=== PATIENT | male | born 1940 | race Caucasian/White ===

== ENCOUNTER 2019-09-17 14:26 | Inpatient (IN) ==
[2019-09-17 15:25] LABS: BASO# 0.04 X1000 (0.0-0.2); BASO% 0.3 % (0.0-0.8); EOS# 0.09 X1000 (0.0-0.7); EOS% 0.7 % (0.0-10.0); HEMATOCRIT 48.2 % (42.0-52.0); HEMOGLOBIN 16.1 g/dL (14.0-18.0); IMM GRAN# 0.05 X1000 (0.0-0.04); IMM GRAN% 0.4 % (0.0-0.5); LYMPH# 1.82 X1000 (1.2-3.4); LYMPH% 13.6 % (20.5-51.1); MCH 32.1 PG (27-31); MCHC 33.4 g/dL (33-37); MCV 96.2 FL (81-99); MONO# 0.16 X1000 (0.11-0.59); MONO% 1.2 % (1.7-9.3); MPV 9.3 FL (7.4-10.4); NEUT# 11.22 X1000 (1.4-6.5); NEUT% 83.8 % (42.2-75.2); PLT 198 X1000 (130-400); RBC 5.01 XMIL (4.7-6.1); WBC 13.38 X1000 (4.8-10.8)
[2019-09-17 15:37] LABS: ALB/GLOB RATIO 1.8; ALBUMIN 4.2 g/dL (3.5-5.0); CALCIUM 9.2 mg/dL (8.8-10.2); CREATININE 1.4 mg/dL (0.7-1.2); POTASSIUM 4.1 mmol/L (3.5-5.1); TOTAL BILIRUBIN 2.37 mg/dL (0.20-1.00); TOTAL PROTEIN 6.5 g/dL (6.3-8.3)
[2019-09-17] MEDS ORDERED: NS 500 ML IV ONE ×2 (15:39→18:30)
[2019-09-17] MEDS ORDERED: ZOFRAN ODT PO ONE (15:40)
[2019-09-17] MEDS ORDERED: ZOFRAN IV ONE (15:49)
--- NOTE | 2019-09-17 15:54 | PROVIDER DOCUMENTATION ---
HPI-Abdominal Pain/GI Problem - General Chief Complaint: Abdominal Pain Stated Complaint: ABD PAIN Time Seen by Provider: 09/17/19 14:44 Source: patient Allergies/Adverse Reactions: Patient Allergies Allergy/AdvReac Type Severity Reaction Status Date / Time prednisone AdvReac Mild NERVOUS Verified 01/19/18 21:47 Gtttlyo-Tlb-Mrm Reductase AdvReac ABDOMINAL Verified 01/19/18 21:47 Inhibitor PAIN Home Medications: Home Medication List Medication Instructions Recorded Confirmed Last Taken Type Aspirin [Ecotrin] 81 mg PO DAILY 02/24/12 01/19/18 01/17/18 History 324 mg Lisinopril 20 mg PO DAILY 02/24/12 01/19/18 01/17/18 History Apixaban [Eliquis] 5 mg PO BID tablet 01/23/17 01/19/18 01/09/18 08:00 Rx Nitroglycerin Sl [Nitroglycerin] 0.4 mg SL Q5M PRN PRN #0 tablet 01/23/17 01/19/18 01/17/18 Rx x3 doses. Carvedilol [Coreg] 3.125 mg PO BID 04/01/17 01/19/18 01/17/18 History Furosemide 60 mg PO MOWEFR 04/01/17 01/19/18 01/17/18 History Hydrocodone Bit/Acetaminophen 1 tab PO BID 04/01/17 01/19/18 01/17/18 History [Hydrocodon-Acetaminophen 5-325] Prasugrel HCl [Effient] 10 mg PO DAILY 01/08/18 01/19/18 01/11/18 08:00 History Isosorbide Mononitrate E.r. [Imdur] 30 mg PO DAILY #7 tab 01/18/18 01/19/18 Unknown Rx - History of Present Illness-ABD Nature of Presenting Problems: 79yowm present with c/o abdominal pain, nausea and vomiting that started last pm. Patient states that he ate fig newtons and drank coffee and then vomited last pm. He then took pepto bismol and the symptoms subsided. This am he ate fig newtons and drank coffee and vomited again and took peptol bismol with symptoms subsiding again. He then drove to work and had to stop and vomit on t he way to work. He pulled over at a gas station got some peptol bismol the symptoms did not subside he started having chills and decided to come to the ER at this time. Abdominal Pain Onset Location: reports: epigastric Pain Radiation: reports: no radiation Quality of Pain: reports: cramping Severity in ED: reports: moderate Onset/Duration: reports: last night Timing: reports: still present Activities at Onset: reports: none Exposure to sick contacts?: No Modifying Factors: improves with: nothing Associated Symptoms: reports: fever/chills (chills), nausea, vomiting Last BM: this morning Dark Stools Present?: reports: none noticed Rectal Bleeding: reports: none Rectal Pain: reports: none Emesis Description: reports: none Bruising or Bleeding Gums?: No Similar Symptoms Previously?: No Recently seen or treated by another doctor?: No Review of Systems - Adult - REVIEW OF SYSTEMS - ADULT Constitutional: reports: chills Eyes: reports: no symptoms reported Ears, Nose, Mouth & Throat: reports: no symptoms reported Cardiovascular: reports: no symptoms reported Respiratory: reports: no symptoms reported Gastrointestinal: reports: abdominal pain, constipation, nausea, vomiting Genitourinary: reports: no symptoms reported Musculoskeletal: reports: no symptoms reported Integumentary: reports: no symptoms reported Neurological: reports: no symptoms reported Psychiatric: reports: no symptoms reported Endocrine: reports: no symptoms reported Hematologic/Lymphatic: reports: no symptoms reported Allergic/Immunologic: reports: no symptoms reported All Other Systems: Reviewed and Negative Past History - Adult - PAST MEDICAL HISTORY-ADULT Review of Records: reports: Old Records Reviewed, Nursing Assessment Review, Medications Reviewed, Social history reviewed & non-contributory. 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 on dangers of tobacco.: Discussed manners to quit use, and f/u contacts for add'l counseling. Substance Use: denies Living Situation: family Physical Exam-General - PHYSICAL EXAM-ADULT Initial Vital Signs Reviewed: Yes - CONSTITUTIONAL General Appearance: alert, mild distress - EYES Eyes: PERRL/EOMI, pale conjunctivae - HEAD, EARS, NOSE, MOUTH & THROAT HENMT: normocephalic/atraumatic, moist mucous membranes, normal ENT inspection - NECK Neck: non-tender, full range of motion, supple, normal inspection - RESPIRATORY Respiratory: chest non-tender, lungs clear, normal breath sounds, no pleuratic chest pain, no respiratory distress, no accessory muscle use - CARDIOVASCULAR Cardiovascular: normal peripheral pulses, regular rate, rhythm, no edema, no gallop, no JVD, no murmur - GASTROINTESTINAL (ABDOMEN) Abdominal Exam: normal bowel sounds, tenderness (epigastric) - MUSCULOSKELETAL Back Exam: normal inspection, no CVA tenderness Extremity: non-tender, normal gait, pedal edema Peripheral Pulses: radial (R): 2+, radial (L): 2+, dorsalis-pedis (R): 2+, dorsalis-pedis (L): 2+ - SKIN Integumentary: normal color, normal turgor, warm/dry - NEUROLOGIC Neurologic: grossly normal - PSYCHIATRIC Psych/Mental Status: normal mood/affect, normal thought content, oriented x 3 Progress - PLAN OF CARE/RESULTS Progress/Plan/Lab Results: Vital Signs - 8 hr 09/17/19 14:30 09/17/19 15:12 Temperature 96.4 F L 97 F L Pulse Rate 65 72 Respiratory Rate 27 H 27 H Blood Pressure 182/84 O2 Sat by Pulse Oximetry 96 90 L Laboratory Results - last 24 hr 09/17/19 09/17/19 09/17/19 15:00 15:09 15:09 WBC 13.38 H RBC 5.01 Hgb 16.1 Hct 48.2 MCV 96.2 MCH 32.1 H MCHC 33.4 RDW Std Deviation 14.0 Plt Count 198 MPV 9.3 Immature Gran % (Auto) 0.4 Neut % (Auto) 83.8 H Lymph % (Auto) 13.6 L Moody % (Auto) 1.2 L Eos % (Auto) 0.7 Baso % (Auto) 0.3 Immature Gran # (Auto) 0.05 H Neut # (Auto) 11.22 H Lymph # (Auto) 1.82 Moody # (Auto) 0.16 Eos # (Auto) 0.09 Baso # (Auto) 0.04 Sodium 134 L Potassium 4.1 Chloride 99 Carbon Dioxide 19 L Anion Gap 16 BUN 17 Creatinine 1.4 H Estimated GFR/1.73 m2 49 BUN/Creatinine Ratio 12 Glucose 142 H Calculated Osmolality 272 Calcium 9.2 Total Bilirubin 2.37 H AST 244 H ALT 118 H Alkaline Phosphatase 126 H Total Protein 6.5 Albumin 4.2 Globulin 2.3 Albumin/Globulin Ratio 1.8 Lipase 2138 H Plasma Lactate 3.6 H Orders Category Date Time Status NEWS Score 2-4:Order NEWS Lactate Series NOW Care 09/17/19 14:43 Active NPO Diet 09/17/19 15:01 Active CBC WITH DIFF [HEME] Stat Lab 09/17/19 15:09 Completed COMPREHENSIVE METABOLIC PANEL [CHEM] Stat Lab 09/17/19 15:00 Completed LACTATE, PLASMA [CHEM] Q3H Lab 09/17/19 15:09 Completed LACTATE, PLASMA [CHEM] Q3H Lab 09/17/19 17:45 Uncollected LACTATE, PLASMA [CHEM] Q3H Lab 09/17/19 20:45 Uncollected LIPASE [CHEM] Stat Lab 09/17/19 15:00 Completed 0.9% Sodium Chloride Inj [Ns] 500 ml Med 09/17/19 15:39 Active IV 999 mls/hr Ondansetron Odt [Zofran Odt] Med 09/17/19 15:40 Discontinued 4 mg PO NOW ONE Abd Pain/OB <20 weeks Stat Oth 09/17/19 15:01 Ordered Patient agrees with POC rendered today. Result Diagrams: 09/17/19 15:09 09/17/19 15:00 - XRAY 1 XRAY Study: Abdomen Impression: See EMR Report (COMMENT: The bowel gas pattern is unremarkable. There is no evidence organomegaly or mass. Compared to 08/11/2011 there has been no significant change in the appearance of the abdomen. IMPRESSION: Nonspecific abdomen. Electronically signed by Eric Smith 09/17/2019 4:24 PM) 2 XRAY Study: Chest (COMMENT: There is a left pleural effusion. There is hazy interstitial opacity in both lung bases particularly the left lower lobe. This is slightly worse than on 01/19/2018. The heart size remains enlarged. IMPRESSION: Pulmonary edema. Left pleural effusion. Electronically signed by Eric Smith 09/17/2019 4:23 PM) - CONSULTS/PCP/HOSPITALIST Notification #1 *Consult/PCP/Hospitalist*: KATINA Gomez for Dr. King Time Discussed: 17:53 Consult Disposition: Admit Departure - Departure Date of Disposition Decision: 09/17/19 Time of Disposition Decision: 17:53 DIAGNOSIS: Pancreatitis, acute Qualifiers: Pancreatitis type: unspecified pancreatitis type Acute pancreatitis complication: unspecified Qualified Code(s): K85.90 - Acute pancreatitis without necrosis or infection, unspecified Disposition: ADMITTED INPATIENT 09 Certified Medical Emergency: Emergent Condition: Serious Referrals and Follow-Ups: None,PCP [Primary Care Provider] - - Critical Care Note This patient required my direct & personal management of CC.: Yes Total Time (mins): 40 Critical Care Statement: This patient required my direct personal management to treat or rule out processes, the absence of which, could potentiallly result in sudden, clinically significant life or limb threatening deterioration. Attestation - Physician/ ANGIE Attestation Patient care was provided by Advanced Practice Provider:: Yes Advanced Practice Provider:: Lucretia Woodruff Advanced Practice Provider documentation review:: The Mid-level provider documentation, treatment plan and medical decision making was reviewed by the physician who agrees with all treatment and medical decision making by the MLP. The physician spent face to face time with patient:: No Advanced Practice Provider documentation review:: Supervising physician onsite and consulted in the evaluation and care of this patient. The physician did not have a face to face encounter with the patient.
[2019-09-17] MEDS ORDERED: NS 1,000 ML IV ONE (16:05)
[2019-09-17 16:19] LABS: INR 1.13; PROTIME 14.7 Seconds (11.0-16.0)
[2019-09-17 16:21] LABS: PTT 27.9 Seconds (22.3-41.8)
[2019-09-17 16:26] LABS: URINE SOURCE CLEAN CATCH
--- NOTE | 2019-09-17 16:26 | Diag Imaging Result Doc PS360 ---
EXAM: CHEST-1 VIEW 09/17/2019 HISTORY: sepsis protocol TECHNIQUE: AP portable supine at 1604 COMMENT: There is a left pleural effusion. There is hazy interstitial opacity in both lung bases particularly the left lower lobe. This is slightly worse than on 01/19/2018. The heart size remains enlarged. IMPRESSION: Pulmonary edema. Left pleural effusion. Electronically signed by Eric Smith 09/17/2019 4:23 PM
--- NOTE | 2019-09-17 16:26 | Diag Imaging Result Doc PS360 ---
EXAM: KUB ABDOMEN 09/17/2019 HISTORY: n/v TECHNIQUE: KUB COMMENT: The bowel gas pattern is unremarkable. There is no evidence organomegaly or mass. Compared to 08/11/2011 there has been no significant change in the appearance of the abdomen. IMPRESSION: Nonspecific abdomen. Electronically signed by Eric Smith 09/17/2019 4:24 PM
[2019-09-17 16:29] LABS: BILIRUBIN URINE NEGATIVE (NEGATIVE); BLOOD URINE NEGATIVE (NEGATIVE); COLOR YELLOW; GLUCOSE URINE NEGATIVE (NEGATIVE); KETONE URINE NEGATIVE (NEGATIVE); LEUKOCYTES URINE NEGATIVE (NEGATIVE); NITRITE URINE NEGATIVE (NEGATIVE); PROTEIN URINE TRACE mg/dL (NEGATIVE); TURBIDITY URINE CLEAR (CLEAR); UROBILINOGEN URINE 2 mg/dL (NORMAL)
[2019-09-17 16:39] LABS: UR EPITHELIAL CELLS <10 /HPF (<10); URINE BACTERIA NEGATIVE /HPF; URINE RBC <10 /HPF (<10); URINE WBC <10 /HPF (<10)
[2019-09-17 16:42] LABS: URINE CASTS NONE SEEN; URINE CRYSTALS NONE SEEN; URINE YEAST NONE SEEN
[2019-09-17] MEDS ORDERED: SODIUM CHLORIDE 0.9% INJ SCH (18:20)
[2019-09-17] MEDS ORDERED: ZOFRAN IV PRN (18:20)
[2019-09-17] MEDS ORDERED: NS 1,000 ML IV SCH (18:20)
--- NOTE | 2019-09-17 18:59 | HISTORY AND PHYSICAL ---
PRIMARY CARE PHYSICIAN: Listed as none. CHIEF COMPLAINT: Abdominal pain with nausea, vomiting that began last night and progressively worsened. HISTORY OF PRESENTING ILLNESS: This is an 79-year-old male who presents to [facility] with a periumbilical abdominal pain and nausea, vomiting that began last night. States that he had eaten some Fig Newtons and drank coffee and then threw up and took some Pepto-Bismol and the symptoms subsided. This morning, he did the same thing in eating Fig Newtons and drinking coffee and then threw up again. He took some Pepto-Bismol and the symptoms subsided again. He was driving to work this morning and had to stop again and throw up and went and got some Pepto-Bismol, but the symptoms did not subside this time. Began having chills so he came to the emergency room. His workup showed a white blood cell count of 13.38. Sodium of 134, creatinine of 1.4 which appears to be around his baseline. He had elevated LFTs with an AST of 244, ALT 118, total bilirubin 2.37. Triglycerides were 103, lipase was 2138 with a plasma lactate of 3.6. We did a chest x-ray that showed pulmonary edema and a left pleural effusion. An abdomen x-ray showed a nonspecific abdomen, so he will be admitted for further evaluation and treatment. PAST MEDICAL HISTORY: CHF, atrial fibrillation, hypertension, coronary artery disease, asthma, shingle neuropathy. PAST SURGICAL HISTORY: CABG, heart stents, and a lung resection. FAMILY HISTORY: Reviewed and noncontributory. SOCIAL HISTORY: Currently lives with family. Smokes a pipe 3 times a day. Denies any alcohol or illicit drug use. ALLERGIES TO: Prednisone and statins. HOME MEDICATIONS: A current list will need to be obtained, reconciled, reviewed and restarted as appropriate. We will place an order for nursing to update and confirm home medications. LABORATORY DATA: Showed a white blood cell count of 13.38, hemoglobin of 16.1, hematocrit 48.2, platelets 198,000. PT and INR of 14.7 and 1.13. Sodium 134, potassium 4.1, chloride 99, CO2 19, BUN of 17 with a creatinine of 1.4, glucose 142, total bilirubin of 2.37, AST of 244, ALT of 118. Cardiac enzymes were negative. Triglycerides were 103, cholesterol 214. His lipase was 2138 with a plasma lactate of 3.6. Urinalysis was negative. Chest x-ray showed pulmonary edema and a left pleural effusion. Abdomen x-ray showed a nonspecific abdomen. REVIEW OF SYSTEMS: He denied any fever. He was positive for chills. Denied any blurred vision, dizziness, chest pain, coughing, shortness of breath. He had periumbilical abdominal pain, nausea, vomiting. Denied constipation, diarrhea, burning or hurting with urination. PHYSICAL EXAMINATION: On arrival he had a temperature of 96.4 degrees, pulse of 65, respirations 27, blood pressure of 182/84 saturating 96% on room air. He dropped this sat about an hour after arrival to 90% on room air so we placed him on some O2 and is now saturating 92% on 4 L via nasal cannula. GENERAL: This is an 79-year-old male who is lying in the bed and answers questions appropriately. HEENT: Normocephalic, atraumatic. Normal ENT inspection. Oropharynx and nares are clear. EYES: Pupils are equal, round, and reactive to light and accommodation. Extraocular movements are intact. NECK: Normal inspection. Normal range of motion. LUNGS: Clear to auscultation bilaterally with equal lung expansion and chest wall movement. HEART: With regular rate and rhythm. No murmurs, rubs, or gallops. ABDOMEN: There is some tenderness in the periumbilical and epigastric area. Bowel sounds are present x4 quadrants. MUSCULOSKELETAL: He had 5/5 strength x4 extremities. NEUROLOGICAL: Cranial nerves 2-12 are grossly intact. ASSESSMENT: 1. An acute pancreatitis. 2. Elevated liver function tests. 3. History of congestive heart failure. 4. Hypertension. PLAN: He will be admitted to the medical unit, held n.p.o. We are going to check a complete abdomen ultrasound. He did receive 2 L of normal saline in the emergency room due to his congestive heart failure. I am going to go gently with some fluids just at 50 mL an hour, have morphine 2 mg IV q.3 hours p.r.n. for pain. We will give him Zofran 4 mg IV q.4 hours p.r.n. We will update and confirm his home medications, but at this time he is NPO anyway so he would not receive any of his medications. This certainly could be a gallstone pancreatitis since he has got some elevation in his LFTs. We will review those results when the ultrasound is available and we will recheck a CBC, CMP in the a.m. and further orders after seen by attending. Dictated by KATINA Gomez for Chris King MD cc: KATINA Gomez MD
--- NOTE | 2019-09-17 19:19 | HISTORY AND PHYSICAL ---
ADDENDUM: I have seen and examined Mr. Benavides today. Mr. Benavides presented with acute onset of abdominal pain, mid epigastrium that radiated to the back associated with some nauseation. That happened yesterday. It eased off, and then this morning it came even harder. That prompted him to come to the emergency room. Upon presentation, he was evaluated, was found to have mild elevation of the liver enzymes and also remarkably elevated in the lipase consistent with acute pancreatitis. Etiology is still unknown. PHYSICAL EXAM: HEENT: Mucous membrane is remarkably dry. He is actually requesting if he can drink something. CHEST: Clear. CARDIOVASCULAR: Regular rate and rhythm. There is an old sternotomy scar on the anterior chest wall. ABDOMEN: Soft. There is some tenderness in the periumbilical area. There is no rebound tenderness. Bowel sounds are present. EXTREMITIES: No pedal edema. LABORATORY DATA: Has also been reviewed. There is mild leukocytosis and evidence of hemoconcentration with hemoglobin of 16.1. Chemistry is also reviewed. Creatinine is 1.4. Bilirubin is 2.39, AST is 244, ALT is 118. Lipase is remarkably elevated. ASSESSMENT: 1. Acute onset of abdominal pain secondary to acute pancreatitis. Etiology is still unknown. The patient's liver enzymes are elevated, which is concerning for possible gallstone induced acute pancreatitis. On physical exams, he does not seem to have any tenderness in the gallbladder region. We will get a CT scan of the abdomen to rule out any possible etiology. So far, triglycerides are within normal range. Patient denies alcohol use despite AST is more elevated than the ALT. 2. Clinical volume depletion. The patient will be started on lactated Ringer's for fluid resuscitation purposes. That would also be the fluid for the pancreatitis therapy. 3. Acute kidney injury secondary to volume depletion. We will continue to follow. We will also avoid any nephrotoxin. 4. History of coronary artery disease status post coronary artery bypass graft noted. 5. Severe ischemic cardiomyopathy with systolic dysfunction, ejection fraction of 35% to 40% on a left heart cath done in 2018 noted. The patient will keep a very close eye on his hydration status. Please refer to the details of the history and physical that has been dictated by the ANIMAL CARETAKER SUPERVISOR in the chart. I have reviewed I have discussed the plan with her. I have also discussed my findings and the plan with Mr. Benavides. cc: Chris King MD
[2019-09-17] MEDS: LR 1,000 ML IV SCH (19:23)
[2019-09-17] MEDS: PROTONIX IV SCH (19:23)
--- NOTE | 2019-09-17 21:19 | Diag Imaging Result Doc PS360 ---
EXAM: CT ABD/PELVIS W/IV CONT ONLY 09/17/2019 HISTORY: acute pancreatitis TECHNIQUE: This exam was performed using automated exposure control, adjustment of mA or kV according to patient size, and/or use of iterative reconstruction technique. COMMENT: There are no previous studies available for comparison. There are bilateral pleural effusions more so on the left than the right. There is compressive atelectasis particularly in the left lower lobe. There are some partially calcified fibrotic scars in the right lower lobe. There are dense calcifications in the superior mesenteric artery and there is infrarenal abdominal aortic aneurysm with a maximum AP diameter of 3.6 cm. There is a calcification in both common iliac arteries with some aneurysmal dilatation of the right two 1.7 cm in diameter. There is some stranding in the fat surrounding the second portion of the duodenum. There is an apparent diverticulum arising from the third portion of the duodenum which contains some solid material. There is apparent wall thickening and possible para cholecystic fluid or gallbladder with some small calcified stones in the fundus. The gallbladder is not particularly distended. There is no evidence of biliary dilatation. The spleen and adrenal glands are not enlarged. There are numerous vascular calcifications in both kidneys. There is no evidence of hydronephrosis. The pancreas is relatively normal in appearance. There is no evidence of bowel obstruction. Pelvis: The appendix is not distended or inflamed in appearance. There is no evidence of free fluid. The urinary bladder is not distended. There are surgical clips in the prostate. There are spondylotic changes in the lumbar spine. IMPRESSION: The possibility of cholecystitis cannot be excluded. Apparent duodenitis involving the second portion of the duodenum. Electronically signed by Eric Smith 09/17/2019 9:17 PM
[2019-09-17] MEDS: MORPHINE IV PRN (22:48)
[2019-09-17] MEDS: ZOSYN 3.375 GM in NS 50 ML IV SCH (22:59)
[2019-09-18] MEDS: MORPHINE IV PRN ×3 (03:21→23:00)
[2019-09-18] MEDS: LR 1,000 ML IV SCH ×3 (03:24→19:47)
[2019-09-18] MEDS: ZOSYN 3.375 GM in NS 50 ML IV SCH ×4 (03:24→21:35)
[2019-09-18 07:13] LABS: ALB/GLOB RATIO 1.7; ALBUMIN 3.5 g/dL (3.5-5.0); CALCIUM 8.5 mg/dL (8.8-10.2); CREATININE 1.7 mg/dL (0.7-1.2); POTASSIUM 4.5 mmol/L (3.5-5.1); TOTAL BILIRUBIN 6.81 mg/dL (0.20-1.00); TOTAL PROTEIN 5.6 g/dL (6.3-8.3)
[2019-09-18 07:16] LABS: BASO# 0.01 X1000 (0.0-0.2); HEMATOCRIT 42.5 % (42.0-52.0); HEMOGLOBIN 13.9 g/dL (14.0-18.0); IMM GRAN# 0.05 X1000 (0.0-0.04); IMM GRAN% 0.2 % (0.0-0.5); LYMPH# 0.63 X1000 (1.2-3.4); LYMPH% 2.8 % (20.5-51.1); MCH 31.8 PG (27-31); MCHC 32.7 g/dL (33-37); MCV 97.3 FL (81-99); MONO# 1.34 X1000 (0.11-0.59); MONO% 5.9 % (1.7-9.3); MPV 9.7 FL (7.4-10.4); NEUT# 20.57 X1000 (1.4-6.5); NEUT% 91.1 % (42.2-75.2); PLT 149 X1000 (130-400); RBC 4.37 XMIL (4.7-6.1); RDW 14.4 % (11.5-14.5)
[2019-09-18 08:05] LABS: BANDS 14 % (0-1); LYMPHS 10 % (21-51); MONO 8 % (1-9); SEGS 68 % (42-75)
--- NOTE | 2019-09-18 09:29 | Diag Imaging Result Doc PS360 ---
EXAM: US ABDOMEN-COMPLETE 09/18/2019 HISTORY: pancreatitis TECHNIQUE: Abdominal ultrasound COMMENT: The pancreatic head and body are normal in appearance the remainder is not well seen. The liver is slightly heterogeneous in echotexture without definite masses. The visualized portions of the inferior vena cava are within normal limits. There is slight fusiform dilatation of the infrarenal abdominal aorta to almost 3 cm in AP dimension. This was measured at 3.6 cm on the recent CT of 09/17/2019. There is some sludge and small stones in the gallbladder. There is a 7 mm stone in the neck of the gallbladder. There is no sonographic Smith sign. There is antegrade flow in the portal vein. The common bile duct is not distended measuring less than 4 mm. The spleen is not enlarged. The kidneys are without evidence of hydronephrosis or mass. IMPRESSION: Cholelithiasis with sludge in the gallbladder. Abdominal aortic aneurysm. Electronically signed by Eric Smith 09/18/2019 9:27 AM
--- NOTE | 2019-09-18 12:03 | PROGRESS NOTE ---
DATE: 09/18/2019 SUBJECTIVE: This patient seems to be feeling good. As per the patient, his pain went away yesterday night. He is not having pain upon palpation. His abdomen seems to be benign, but his LFTs and white blood cell count went up. We asked for an abdominal ultrasound that showed cholelithiasis with sludge in the gallbladder. and also showed an abdominal aortic aneurysm that was recently measured at 3.[address] cm [address] scan on 09/17/2019. OBJECTIVE: Vital Signs: Temperature 98.2 degrees, pulse 60, respiratory rate 17, blood pressure 112/42, oxygen saturation 95% on nasal cannula. HEENT: Head normocephalic, no trauma. PERRLA. Neck: Supple. No JVD. No masses. Central trachea. Chest: Clear to auscultation. No wheezing. No rales. Abdomen: Soft, nontender, nondistended. No hepatosplenomegaly. Extremities: No edema, no clubbing, no cyanosis. Neurological: The patient is awake, alert, he is oriented. LABORATORY: WBC 22.6, hemoglobin 13.9, hematocrit 42.5, platelets 149,000, sodium 138, potassium 4.5, chloride 101, bicarbonate 20, BUN 22, creatinine 1.7, glucose 111, calcium 8.5, total bilirubin 6.8, AST 386, ALT 330, alkaline phosphatase 154, albumin 3.5. ASSESSMENT AND PLAN: 1. Acute onset of abdominal pain secondary to acute pancreatitis. Lipase level was 2,138. Triglyceride level was normal. He is not a drinker, his LFTs are trending up so probably this is related to a biliary pancreatitis, probably he had a little stone and the stone passed and now he is basically asymptomatic. Last time he received morphine was at 3:20 a.m. today and when I examined him around 10 a.m. or so he was not complaining of abdominal pain. Given his history of heart failure, I will be gentle with the IV fluids. 2. Dehydration, seems to be euvolemic at this moment. 3. Acute kidney injury, probably due to dehydration as well. His creatinine is trending up even though he has been getting fluids. Also he had a CT of abdomen with IV contrast that can cause kidney problems. I will continue with gentle IV fluids and I will monitor this closely. 4. History of coronary artery disease, status post coronary artery bypass graft, with severe ischemic cardiomyopathy with systolic dysfunction. His ejection fraction is 35 to 40 percent on a left heart catheterization done on 2018. Like I mentioned before, we will keep an eye on his IV fluids. He has no complaints of chest pain or shortness of breath at this moment. Surgery Department has been consulted as well as Gastroenterology. Ultrasound showed cholelithiasis with sludge in the gallbladder and abdominal aortic aneurysm. cc: Renny Sauceda MD
--- NOTE | 2019-09-18 13:15 | CONSULTATION ---
DATE OF CONSULTATION: 09/18/2019 Mr. Mike Benavides is an 79-year-old white male who was admitted through the emergency department yesterday afternoon to our hospitalists with abdominal pain, nausea and vomiting. He underwent a CT scan of his abdomen and pelvis as part of his evaluation, which showed some inflammation around his duodenum, also showed gallstones. His lipase was markedly elevated. He is admitted with gallstone pancreatitis and we were asked to evaluate him. This morning he says that his pain is improved. PAST MEDICAL HISTORY: Atrial fibrillation, coronary artery disease, hypertension, asthma, kidney stones, shingles, cardiac stent, lung resection, coronary artery bypass grafting. MEDICATIONS: 1. Aspirin. 2. Lisinopril. 3. Eliquis. 4. Nitroglycerin. 5. Coreg. 6. Lasix. 7. Imdur. 8. Effient. ALLERGIES: He is allergic to statins. REVIEW OF SYSTEMS: A review of systems was performed and was essentially negative except for the history of present illness. History of smoker. FAMILY HISTORY: Was reviewed with the patient and was noncontributory. PHYSICAL EXAMINATION: General: On exam, Mr. Benavides is a frail older white male who is awake and cooperative, seems to be comfortable. He is slim. He has no jaundice. No oral lesions. No cervical or supraclavicular lymphadenopathy. Heart: Has an irregular rate. Lungs: Clear. Abdomen: Soft, nontender, without palpable mass. No costovertebral tenderness. Rectal exam: Was not performed. Extremities: He does have palpable femoral pulses. He has no significant peripheral edema. Neurological: No focal deficit. His white blood cell count was elevated to 13. His BUN and creatinine are 17 and 1.4. His lipase was in the thousands. IMPRESSION: Gallstone pancreatitis. PLAN: He is NPO now. Clinically it seems like he has improved since his admission. We will follow his amylase and lipase and as those improve, we will plan to do a laparoscopic cholecystectomy. We will have to work out his anticoagulation. cc: Aurora Gramajo MD
[2019-09-18] MEDS: PROTONIX IV SCH (18:08)
--- NOTE | 2019-09-18 22:42 | GASTROENTEROLOGY CONSULTATION ---
DATE: 09/18/2019 Requesting Physician: Dr. Andres. REASON FOR CONSULTATION: Gallstone pancreatitis. HISTORY OF PRESENT ILLNESS: Mr. Benavides is an 79-year-old male who was admitted on 09/17/2019 for symptoms of periumbilical abdominal pain, nausea, and vomiting starting last night. According to the patient, he took Pepto-Bismol initially which helped the symptoms, but next morning he had started to hurt again along with nausea and vomiting. Because of persistent symptoms, he came to the ER. In the ER he was noted to have elevated white count, elevated liver enzymes and was admitted. He had imaging in the form of CT scan of abdomen and pelvis which showed evidence of wall thickening and possible pericholecystic fluid with some calcified stones in the fundus of the gallbladder suggesting possibility of acute cholecystitis. There was evidence of apparent duodenitis involving the second portion of the duodenum. He also had an ultrasound of the abdomen done which showed evidence of cholelithiasis with sludge in the gallbladder and apparent aortic aneurysm, the aortic aneurysm measuring 3 cm and was infrarenal in position. The CBD measured 4 mm, and there was antegrade flow in the portal vein. The patient has already been seen by Dr. Gramajo who is planning possible cholecystectomy based on his clinical course. During this hospital stay the patient was also noted to have elevated liver enzymes and elevated lipase of 2138, and Gastroenterology was consulted for further management. PAST MEDICAL HISTORY: Congestive heart failure, atrial fibrillation, hypertension, coronary artery disease, asthma, shingles, and neuropathy. PAST SURGICAL HISTORY: CABG, heart stents, and lung resection. FAMILY HISTORY: Noncontributory. SOCIAL HISTORY: Currently lives with family. He smokes a pipe 3 times a day. Denies history of alcohol or illicit drug abuse. ALLERGIES: Prednisone and statins. MEDICATIONS IN THE HOSPITAL: Included morphine, Lovenox, lactated Ringer's at 75 mL per hour, Zofran 4 mg IV q. 4 hours, Protonix once daily, and Zosyn 3.375 g IV q. 6 hours. According to the records, he has gotten fluid boluses on admission. He is currently NPO. REVIEW OF SYSTEMS: Denies any current fevers, rigors, or chills. Denies any vomiting blood or passing blood in the stools. He denies any neurologic complaints. He denies any chest pain or shortness of breath. He denies any other kidney problems. PHYSICAL EXAMINATION: Vital signs: Temperature 98 degrees, pulse rate of 60, respiratory rate of 17, blood pressure 120/48, saturating 90% on nasal cannula. Body weight of 150 pounds. BMI 22.8 kg/m2. General: Moderately built, moderately nourished, sitting in bed, in no acute distress. HEENT: Positive pallor. Positive icterus. Pupils equal and reactive to the light and accommodation. Neck: Neck is supple. Abdomen: Soft, nontender. Mild discomfort in the epigastrium on deep palpation. No rebound or guarding. Extremities: No cyanosis, clubbing. Neurologic: He is alert, awake, oriented x3. LABORATORIES: Hemoglobin and hematocrit is 42.5, white count of 22.6, platelet count of 149,000. Sodium 138, potassium 4.5, chloride 101, bicarb 20, anion gap of 17, BUN of 22, creatinine 1.7, glucose of 111, calcium is 8.5, total bilirubin is 6.8, AST 386, ALT 330, alkaline phos is 150, total protein 5.6, albumin of 3.5, CRP 65.27. Lipase on admission was 2138. Urinalysis showing trace protein. Blood cultures were drawn and it is showing gram-negative rods in 1 out of 2 sets. IMAGING: As per the HPI. IMPRESSION AND PLAN: 1. Gallstone pancreatitis. 2. Gallstones. 3. Normal common bile duct. 4. Elevated liver enzymes secondary to above. 5. Leukocytosis. 6. Gram-negative bacteremia. 7. Acute kidney injury. 8. Dehydration. 9. History of coronary artery disease. 10. Status post coronary artery bypass graft with severe ischemic cardiomyopathy and systolic dysfunction. According to the records, his last ejection fraction was 35 percent to 40 percent on left heart catheterization in 2018. RECOMMENDATIONS: We will start the patient on IV fluids. So far he has received some boluses and currently receiving fluids at 75 mL per hour. He is currently pain free. He is hungry. He wants to start a diet. We will start him on clear liquid diet if okay with the surgery team. He will continue on morphine for pain control. He will be on Lovenox for DVT prophylaxis. He is on Zofran IV as needed. We will give him Protonix once daily. He is on Zosyn every 6 hours for gram-negative bacteremia. This may have to be adjusted based on the final blood culture report and speciation. Surgery is on board. We will plan to do a cholecystectomy based on the clinical course. The patient had been on blood thinners at home in the form of Effient and Eliquis because of history of coronary artery disease. These have been withheld for now. The above plans were discussed with the patient and the nursing staff and all questions answered. Please call us with any further questions or concerns. We will follow along. cc: MD Renny Mckay MD Dr. Buckner MTDD
[2019-09-19] MEDS: ZOSYN 3.375 GM in NS 50 ML IV SCH ×4 (02:32→20:59)
[2019-09-19] MEDS: LOVENOX SUBQ SCH (05:50)
[2019-09-19 07:31] LABS: BASO# 0.01 X1000 (0.0-0.2); BASO% 0.1 % (0.0-0.8); HEMATOCRIT 37.4 % (42.0-52.0); HEMOGLOBIN 12.3 g/dL (14.0-18.0); IMM GRAN# 0.04 X1000 (0.0-0.04); IMM GRAN% 0.3 % (0.0-0.5); LYMPH# 0.36 X1000 (1.2-3.4); LYMPH% 2.8 % (20.5-51.1); MCH 31.5 PG (27-31); MCHC 32.9 g/dL (33-37); MCV 95.9 FL (81-99); MONO# 0.66 X1000 (0.11-0.59); MONO% 5.1 % (1.7-9.3); MPV 10.3 FL (7.4-10.4); NEUT# 11.78 X1000 (1.4-6.5); NEUT% 91.7 % (42.2-75.2); PLT 100 X1000 (130-400); RDW 14.3 % (11.5-14.5); WBC 12.85 X1000 (4.8-10.8)
[2019-09-19 07:42] LABS: AMYLASE 132 U/L (20-200); LIPASE 37 U/L (13-60)
[2019-09-19 07:43] LABS: ALB/GLOB RATIO 1.5; ALBUMIN 2.9 g/dL (3.5-5.0); CREATININE 1.7 mg/dL (0.7-1.2); POTASSIUM 3.8 mmol/L (3.5-5.1); TOTAL BILIRUBIN 5.3 mg/dL (0.20-1.00); TOTAL PROTEIN 4.9 g/dL (6.3-8.3)
[2019-09-19 07:50] LABS: BANDS 10 % (0-1); LYMPHS 14 % (21-51); MONO 2 % (1-9); SEGS 74 % (42-75)
[2019-09-19] MEDS ORDERED: MARCAINE 0.25% PF/EPI 1:200,000 ONE (10:24)
[2019-09-19] MEDS ORDERED: LR 1,000 ML ONE (10:25)
[2019-09-19] MEDS ORDERED: SODIUM CHLORIDE 0.9% ONE (10:25)
[2019-09-19] MEDS ORDERED: AMIDATE ONE (10:47)
[2019-09-19] MEDS ORDERED: FENTANYL ONE (10:53)
[2019-09-19] MEDS ORDERED: DECADRON ONE (11:00)
[2019-09-19] MEDS ORDERED: ZOFRAN ONE (11:00)
[2019-09-19] MEDS ORDERED: ZEMURON ONE (11:02)
[2019-09-19] MEDS ORDERED: XYLOCAINE-MPF 2% ONE (11:24)
[2019-09-19] MEDS ORDERED: ROBINUL ONE ×2 (11:24→11:28)
[2019-09-19] MEDS ORDERED: NEOSTIGMINE ONE (11:28)
[2019-09-19] MEDS ORDERED: VENTOLIN HFA ONE (11:49)
--- NOTE | 2019-09-19 11:49 | Diag Imaging Result Doc PS360 ---
EXAM: OPERATIVE CHOLANGIOGRAM 09/19/2019 HISTORY: CHOLECYSTECTOMY TECHNIQUE: Intraoperative cholangiogram three images COMMENT: There is some contrast in the duodenum. There are no definite filling defects present in the common hepatic duct or intrahepatic bile ducts, which are otherwise very well demonstrated. The possibility of some small amounts of debris or stone fragments in the distal common bile duct cannot be excluded. There is retrograde filling of the pancreatic duct which appears patent. The possibility of spasm of the sphincter of Oddi cannot be excluded. IMPRESSION: Questionable debris in the distal common bile duct and/or sphincter of Oddi spasm. Electronically signed by Eric Smith 09/19/2019 11:47 AM
[2019-09-19] MEDS ORDERED: DEMEROL ONE (11:56)
--- NOTE | 2019-09-19 12:08 | OPERATIVE NOTE ---
PROCEDURE DATE: 09/19/2019 PREOPERATIVE DIAGNOSIS: Gallstone pancreatitis. POSTOPERATIVE DIAGNOSIS: Chronic cholecystitis with cholelithiasis. PRINCIPAL PROCEDURE: Laparoscopic cholecystectomy with intraoperative cholangiogram. SURGEON: Aurora Gramajo MD. BURRER OPERATOR: Dr. Juan A Crystal. ANESTHESIA: General in addition to local anesthetic. ESTIMATED BLOOD LOSS: 30 mL. DRAINS: None. INDICATIONS: Mr. Mike Benavides is an 79-year-old white male who was admitted through our emergency department with gallstone pancreatitis. This morning, his lipase and amylase were normal. His liver function tests were still elevated and he had study showing that he had gallstones and cholecystectomy was recommended. FINDINGS: His gallbladder was chronically inflamed and had fat around it. We did do an intraoperative cholangiogram, which showed free flow of the dye into the duodenum without evidence of extrahepatic stones or obstruction. We also opacified the pancreatic duct which also looked normal. The liver appeared to be healthy. We felt we did the operation safely. No other intra- abdominal pathology was noted. DESCRIPTION OF PROCEDURE: Dr. Juan A Crystal was present throughout this operation. His presence was necessary so that I had the help I needed on and during this coronavirus time. He helped with retraction of the right lobe of the liver and the gallbladder so that I could easily dissect out the triangle of Calot. He also helped with exposure so that I could remove the gallbladder from the liver bed. He helped with retractions so I could remove the gallbladder through our umbilical incision. He also helped close trocar incisions. The patient was brought to the operating room, placed supine, received general anesthesia, was intubated. His abdomen was prepped and draped within a sterile field. We made a curvilinear incision below the umbilicus using a 15 blade scalpel. Veress needle was introduced through this incision into the abdomen. Pneumoperitoneum was established. The Veress needle was removed, and I placed an 11 mm trocar through this incision into the abdomen. The camera was placed through this port, and the abdomen was explored for injury, there was none. Three other trocars were placed along the right costal margin under direct vision of the camera. I placed an 11 mm trocar just to the right of the midline and two 5 mm trocars in our midclavicular and anterior axillary lines. Through our most lateral port, the gallbladder was grasped and retracted superiorly along with the right lobe of the liver. Another grasper was used to grab the body of the gallbladder and the triangle of Calot was bluntly dissected. We identified the cystic duct along its length. We also identified the cystic artery. A clip was placed distally on the cystic artery, 2 proximally, it was divided using hook scissors. I placed a clip at the cystic duct gallbladder junction. I made a small incision in the cystic duct using hook scissors and a taut intraoperative cholangiogram catheter was used to perform the cholangiogram with findings above. Once cholangiogram was completed, 2 clips were placed proximally on the cystic duct, and I divided the cystic duct between clips using hook scissors. The gallbladder was removed from the liver bed using spatula cautery. I did have to use an endobag to remove the gallbladder through our umbilical incision. I placed the trocar back through this incision and the area of operation was thoroughly inspected, irrigated, and the irrigation was removed with suction. I did have to use some cautery on the liver bed to control some oozing. We decided against leaving any drain. All trocars were removed under direct vision of the camera. The pneumoperitoneum was allowed to dissipate. I used a [id number] 2-0 Vicryl stitch to reapproximate the fascia and both of our 11 mm trocar sites and all skin was closed with 4-0 Monocryl subcuticular stitches. Dressings were applied. He tolerated the procedure well with plans for him to go the recovery room and then return to his room on the floor. cc: Aurora Gramajo MD
[2019-09-19] MEDS ORDERED: LR 1,000 ML IV SCH (13:00)
--- NOTE | 2019-09-19 14:27 | PROGRESS NOTE ---
DATE: 09/19/2019 SUBJECTIVE: The patient seems to be feeling better today. He is not complaining of abdominal pain. I evaluated this patient in the morning and he was about to get a cholecystectomy done that actually has been done already, laparoscopic cholecystectomy with cholangiogram which did not show any obstruction. OBJECTIVE: Vital Signs: Temperature 97.4 degrees, pulse 66, respiratory rate 12, blood pressure 129/48, oxygen saturation 91 on 4 L nasal cannula. HEENT: Head normocephalic. No trauma. PERRLA. Icteric sclerae. Neck: Supple. No JVD. No masses. Central trachea. Chest: Clear to auscultation. No wheezing, no rales. Abdomen: Soft. He was nontender prior to the surgery. Positive bowel sounds. Extremities: No edema, no clubbing, no cyanosis. Neurologic: The patient was alert, oriented x3 without focal deficit. LABORATORY: WBC 12.8, hemoglobin 12.3, hematocrit 37.4, platelets 100,000. Sodium 135, potassium 3.8, chloride 99, bicarbonate 23, BUN 26, creatinine 1.7, glucose 139, calcium 8, AST 121, ALT 183, alkaline phosphatase 109, bilirubin 5.3, albumin 2.9, lipase dropped from 2138 to 37. ASSESSMENT AND PLAN: 1. Acute onset of abdominal pain secondary to acute pancreatitis, lipase normalized compared to admission. He is status post laparoscopic cholecystectomy with intraoperative cholangiogram, we will continue with same management for now. He has been placed on some fluids at this moment. Continue antibiotics. 2. Dehydration, seems to be euvolemic at this moment. 3. Acute kidney injury likely due to dehydration. Creatinine about the same compared to yesterday. BUN increased a little bit. I checked back his kidney function and he has a chronic kidney disease. His last workup here in the hospital was in 2018 and it showed a creatinine between 1.3 and 1.4, now is between 1.4 and 1.7 which probably his new baseline but we will continue with same management. 4. History of coronary artery disease status post coronary artery bypass graft with severe ischemic cardiomyopathy with systolic dysfunction. His ejection fraction is 35 to 40 percent and he has a left heart catheterization done on 2018, we will keep an eye on his IV fluids. 5. History of atrial fibrillation. This patient is on carvedilol at home and also amiodarone and Eliquis, I will restart his amiodarone tomorrow, hopefully will restart his carvedilol. His heart rate has been mostly in the 60s and 70s. He is still on nasal cannula and I will ask the surgeon if we can restart his Eliquis. cc: Renny Sauceda MD
[2019-09-19] MEDS: MORPHINE IV PRN ×2 (15:33→20:59)
[2019-09-19] MEDS: CORDARONE PO SCH (15:35)
--- NOTE | 2019-09-19 17:03 | GASTROENTEROLOGY PROGRESS NOTE ---
DATE: 09/19/2019 SUBJECTIVE: Patient currently resting in bed. He complains of abdominal pain. He had a laparoscopic cholecystectomy done today with Dr. Gramajo. The intraoperative cholangiogram showed free flow into the duodenum. The operative cholangiogram per Dr. Smith showed evidence of questionable debris in the distal common bile duct or SOD spasm. The patient complains of pain in the abdomen appropriately as expected from recent surgery. He denies any nausea, vomiting. He denies any fevers, rigors, or chills. OBJECTIVE: Vital signs: Temperature 98.3 degrees, pulse of 67, respiratory rate of 16, blood pressure 116/94, saturating 92% on 4 L nasal cannula. Body weight of 150 pounds, BMI 22.8 kg/m2. General: Moderately built, moderately nourished, lying in bed, in no acute distress. HEENT: No pallor. Positive icterus. Pupils equal, reactive to light and accommodation. Neck: Supple. Abdomen: Sore from recent surgery. Mildly protuberant. No guarding. Extremities: No cyanosis, clubbing. Neurologic: He is alert, awake, oriented x3. LABS: His hemoglobin and hematocrit are 12.3 and 37.4, white count of 12.85, platelet count 100, MCV of 95.9. Sodium 135, potassium 3.8, chloride 99, bicarb 23, anion gap 13, BUN of 26, creatinine 1.7, glucose of 139, calcium is 8. Total bilirubin is 5.3, AST 121, ALT 183, alkaline phosphatase 109, total protein 4.9, albumin of 2.9. Lipase is 37, lactate of 2.1. Two sets of blood cultures were drawn on 09/17/2019 and 1 set showed gram-negative rods. Further speciation is pending. IMPRESSION: 1. Gallstone pancreatitis. 2. Gram-negative bacteremia. 3. Atrial fibrillation. 4. Coronary artery disease. 5. Abdominal pain secondary to gallstone pancreatitis and recent cholecystectomy today. 6. Nausea and vomiting, improved. 7. Gallstones, status post cholecystectomy by Dr. Gramajo. 8. Abdominal aortic aneurysm. Aware. 9. Jaundice, elevated liver enzymes secondary to gallstone pancreatitis with a question of cholangitis, and an gram-negative bacteremia. The intraoperative cholangiogram did show flow into the duodenum with possible debris on imaging. RECOMMENDATIONS: The patient will be on IV fluids and continue antibiotics. He has history of congestive heart failure secondary to coronary artery disease. He also has a history of coronary bypass grafting, history of ischemic cardiomyopathy, systolic dysfunction. His EF is about 35 to 40% per the primary team. He is on DVT prophylaxis with Lovenox. He was on Protonix once daily for GI prophylaxis. He is on Zosyn IV q.6 hours for gram-negative bacteremia. Further disposition will be depending on the final report of blood culture and possible titration of antibiotics. We will continue to follow liver enzymes. Hopefully they will trend down. The above plan was discussed with the patient and all questions answered. Please call with any further questions. cc: MD Renny Mckay MD Lynn R. Buckner, MD MTDD
[2019-09-19] MEDS: PROTONIX IV SCH (18:35)
[2019-09-19] MEDS: LR 1,000 ML IV SCH (18:35)
--- NOTE | 2019-09-19 18:38 | EKG Report ---
Test Performed on : 09/19/2019 10:44:51 AM Test Reason : pt having surgery at 11 a.m. Blood Pressure : / mmHG Vent. Rate : 066 BPM Atrial Rate : 066 BPM P-R Int : 168 ms QRS Dur : 106 ms QT Int : 496 ms P-R-T Axes : 257 070 254 degrees QTc Int : 519 ms Unusual P axis, possible ectopic atrial rhythm. Nonspecific ST and T wave abnormality Prolonged QT Abnormal ECG When compared with ECG of 20-JAN-2018 08:00, Ectopic atrial rhythm. has replaced Sinus rhythm. Nonspecific T wave abnormality has replaced inverted T waves in Lateral leads QT has lengthened Confirmed by Aicha PEREZ, Vel Armas ([id number]) on 09/20/2019 4:48:12 PM
[2019-09-20] MEDS: MORPHINE IV PRN ×4 (00:10→19:55)
[2019-09-20] MEDS: ZOSYN 3.375 GM in NS 50 ML IV SCH ×4 (02:33→20:57)
[2019-09-20] MEDS: LR 1,000 ML IV SCH (02:33)
[2019-09-20] MEDS: ULTRAM PO PRN (03:56)
--- NOTE | 2019-09-20 04:15 | PROGRESS NOTE ---
DATE: 09/19/2019 SUBJECTIVE: Mr. Mike Benavides is hospital day 3 after being admitted for gallstone pancreatitis. This morning his lipase and amylase are normal. His liver function tests remain elevated, and an ultrasound documents cholelithiasis. Clinically his abdominal pain has improved. He was started on clear liquids yesterday, and we have kept him NPO this morning. OBJECTIVE: Vital signs: Heart rate 70, blood pressure 129/63, O2 saturation 95% and he is afebrile. LABS: His total bilirubin is 5.3. AST and ALT are elevated but improved. PLAN: I discussed proceeding with laparoscopic cholecystectomy with him. We specifically discussed the risks of surgery, which include bleeding, infection, injury to the to the extrahepatic bile ducts requiring reoperation for repair, bile leak requiring reoperation for drainage, conversion of laparoscopic to open cholecystectomy, and injury to intra-abdominal contents for trocar placement. He understands the need for surgery and its risks and he wants to proceed. cc: Aurora Gramajo MD
--- NOTE | 2019-09-20 04:18 | PROGRESS NOTE ---
DATE: 09/19/2019 ADDENDUM Diagnosis: Also this patient has been found to be bacteremic with gram-negative rods on a blood culture done on 09/17/2019. I will repeat it today. Blood culture showed 1/2 gram negative rods, and he has been placed on Zosyn. cc: Renny Sauceda MD
[2019-09-20] MEDS: LOVENOX SUBQ SCH (06:26)
--- NOTE | 2019-09-20 06:54 | Diag Imaging Result Doc PS360 ---
EXAM: CHEST-PORTABLE HISTORY: dyspnea TECHNIQUE: Single view COMPARISON: 09/17/2019 FINDINGS: The lungs are well expanded. The heart is enlarged with sternal wires and a left-sided pacemaker. Infiltrates in the mid and lower right lung are more pronounced. The appearance of the left lung is similar to the prior study. There are tiny pleural effusions. IMPRESSION: Interval worsening Electronically signed by Vinicius Tiwari 09/20/2019 6:52 AM
[2019-09-20 07:46] LABS: ALB/GLOB RATIO 1.2; ALBUMIN 2.9 g/dL (3.5-5.0); CALCIUM 8.5 mg/dL (8.8-10.2); CREATININE 1.4 mg/dL (0.7-1.2); POTASSIUM 4.4 mmol/L (3.5-5.1); TOTAL BILIRUBIN 3.67 mg/dL (0.20-1.00); TOTAL PROTEIN 5.3 g/dL (6.3-8.3)
[2019-09-20] MEDS ORDERED: LASIX IV ONE ×2 (08:11→15:53)
[2019-09-20] MEDS: CORDARONE PO SCH (09:29)
--- NOTE | 2019-09-20 10:30 | GASTROENTEROLOGY PROGRESS NOTE ---
DATE: 09/20/2019 SUBJECTIVE: Mr. Benavides is an 79-year-old, male resting in bed. The patient did complain of mild abdominal tenderness. He had a laparoscopic cholecystectomy done yesterday. The patient does have small incisions with Steri-Strips on it. He is currently on a clear liquid diet and was able to tolerate his diet fairly well. OBJECTIVE: Vital Signs: Temperature 98.2 degrees, pulse 64, respirations 16, blood pressure 122/65, oxygen saturation 95% on 4 L nasal cannula. The patient's weight is 150 pounds. BMI is 22.8 kg/m2. General: He is alert, oriented x3, and in no acute distress. HEENT: Pale conjunctivae. Mild icterus. PERRL. Neck: Supple. Lungs: Clear to auscultation. Cardiovascular: Regular rate and rhythm. Abdomen: Mildly distended, tender. Hypoactive bowel sounds heard in all 4 quadrants. Extremities: No clubbing, no cyanosis, no edema. Pedal pulses 2+ present bilaterally. Neurologic: Alert, oriented x3. LABS: WBCs are 12.85, RBCs 3.90, hemoglobin is 12.3, hematocrit is 37.4, platelet count is 100. Sodium is 135, potassium 4.4, chloride 100, carbon dioxide 25, anion gap 10. BUN 22, creatinine is 1.4, glucose is 120, calcium is 8.5. Total bilirubin 3.67, AST 63, ALT 125, alkaline phosphatase 96, albumin is 2.9. X-RAYS: Chest x-ray today has shown interval worsening. Operative cholangiogram has shown questionable debris in the distal common bile duct and has been sterile for dye spasm. IMPRESSION AND PLAN: Gallstone pancreatitis Leukocytosis A-fib CAD CHF - last EF 35-40% Abdominal pain Nausea and vomiting Gallstone s/p cholecystectomy Abdominal aortic aneurysm Abnormal LFT's Jaundice-trending down PLAN: Mr. Benavides is an 79-year-old male with status post cholecystectomy. The patient is complaining of abdominal tenderness. He is currently on PPIs daily. He is receiving antiemetic Zofran for his nausea and vomiting. He is on antibiotic Zosyn for his bacteremia. The patient's second blood cultures have been pending. We will continue to monitor the patient's LFT and follow the plan of care per PCP. May need MRCP/ERCP if continues to have elevated liver enzymes. This plan was discussed with Dr. Curran. Please call us for any further questions or concerns. Dictated by KATINA Walsh for Keaton Curran MD cc: Keaton Curran MD I have seen and examined the patient myself and I agree with the above plan of care. Please call us with any questions or concerns. MTDD
--- NOTE | 2019-09-20 12:31 | PROGRESS NOTE ---
DATE: 09/20/2019 Mr. Benavides is an 79-year-old male postop day 1 from a laparoscopic cholecystectomy. We did do an intraoperative cholangiogram which showed free flow of the dye into the duodenum. This morning, he looks comfortable. He is sitting up. His heart rate is 70, blood pressure 158/72, O2 saturation 94%. He is afebrile. Chest x-ray is abnormal, showing infiltrates in the mid right lung. He has had a positive blood culture of Klebsiella. He is on IV Zosyn. He is on a clear liquid diet and that can be advanced as tolerated. cc: Aurora Gramajo MD
--- NOTE | 2019-09-20 14:01 | PROGRESS NOTE ---
DATE: 09/20/2019 SUBJECTIVE: As per the patient, he is feeling better. He is still complaining of abdominal pain and some right shoulder pain, which is chronic. He is status post laparoscopic cholecystectomy with a cholangiogram that did not show any obstruction. He is bacteremic with a Klebsiella pneumonia that is sensitive to Zosyn, so I will continue with same management for now. OBJECTIVE: Vital Signs: Temperature 97.8 degrees, pulse 70, respiratory rate 16, blood pressure 158/72, oxygen saturation 94% on 4 L of nasal cannula. HEENT: Head normocephalic, no trauma. PERRLA. Icteric sclerae. Neck: Supple. No JVD. No masses. Central trachea. Chest: Coarse breath sounds bilaterally at the bases with some crackles. Abdomen: Soft. Generalized tenderness to palpation especially periumbilical area and right upper quadrant. Extremities: No edema, no clubbing, no cyanosis. Neurological: Patient is awake, alert. No focal deficit but generalized weakness. LABORATORY: Sodium 135, potassium 4.4, chloride 100, bicarbonate 25, BUN 22, creatinine 1.4, glucose 120, calcium 8.5, bilirubin 3.6, AST 65, ALT 125, alkaline phosphatase 96. Albumin 2.9. ASSESSMENT AND PLAN: 1. Acute onset of abdominal pain secondary to acute pancreatitis, likely due to cholecystitis, probably gallstone pancreatitis. He is status post laparoscopic cholecystectomy with intraoperative cholangiogram, which did not show any stones. He has been placed home on fluids, which I have stopped, and also antibiotics. 2. Dehydration, resolved. 3. Acute on chronic kidney disease. Likely this is his baseline now. BUN normalized. Creatinine is 1.4. 4. Bacteremia due to Klebsiella pneumoniae. Sensitive to Zosyn. I will go ahead and continue with same management for now. 5. History of atrial fibrillation. I will put this patient back on his home medications with carvedilol, Eliquis, and amiodarone. 6. Leukocytosis. This is getting better, but I will ask for a new CBC in the morning. 7. History of coronary artery disease status post CABG with severe ischemic cardiomyopathy with systolic dysfunction. His ejection fraction is 35 to 40%, and he had a left heart catheterization done in 2018. I have stopped the IV fluids. I will give him some Lasix. 8. Pulmonary edema, likely due to fluid overload. I will give him some Lasix. I will stop the IV fluids. 9. Hypoxemic respiratory failure likely due to fluid overload, possible pneumonia. Continue with antibiotics. cc: Renny Sauceda MD
[2019-09-20] MEDS ORDERED: MILK OF MAGNESIA PO ONE (16:01)
[2019-09-20] MEDS: PROTONIX IV SCH (19:27)
[2019-09-20] MEDS: MIRALAX PO SCH (20:09)
[2019-09-20] MEDS: COREG PO SCH (20:09)
[2019-09-21] MEDS: ZOSYN 3.375 GM in NS 50 ML IV SCH ×4 (03:05→21:11)
[2019-09-21] MEDS: LOVENOX SUBQ SCH (06:08)
[2019-09-21 07:01] LABS: BASO# 0.01 X1000 (0.0-0.2); BASO% 0.1 % (0.0-0.8); HEMATOCRIT 36.2 % (42.0-52.0); IMM GRAN# 0.04 X1000 (0.0-0.04); IMM GRAN% 0.4 % (0.0-0.5); LYMPH# 0.53 X1000 (1.2-3.4); LYMPH% 5.7 % (20.5-51.1); MCH 31.3 PG (27-31); MCHC 33.1 g/dL (33-37); MCV 94.5 FL (81-99); MONO# 0.95 X1000 (0.11-0.59); MONO% 10.3 % (1.7-9.3); MPV 10.9 FL (7.4-10.4); NEUT# 7.71 X1000 (1.4-6.5); NEUT% 83.5 % (42.2-75.2); PLT 99 X1000 (130-400); RBC 3.83 XMIL (4.7-6.1); RDW 14.2 % (11.5-14.5); WBC 9.24 X1000 (4.8-10.8)
[2019-09-21 07:13] LABS: ALB/GLOB RATIO 1.4; ALBUMIN 3.1 g/dL (3.5-5.0); CALCIUM 8.4 mg/dL (8.8-10.2); CREATININE 1.6 mg/dL (0.7-1.2); POTASSIUM 3.8 mmol/L (3.5-5.1); TOTAL BILIRUBIN 3.39 mg/dL (0.20-1.00); TOTAL PROTEIN 5.3 g/dL (6.3-8.3)
--- NOTE | 2019-09-21 08:20 | PROGRESS NOTE ---
DATE: 09/21/2019 Mr. Mike Benavides underwent a laparoscopic cholecystectomy with intraoperative cholangiogram. He is now postop day 2. He was admitted with what we felt was gallstone pancreatitis. At the time of surgery, his cholangiogram was normal. He had an abnormal chest x-ray postoperatively. His liver function tests have been slow to normalize. He is complaining of problems sleeping. He also has problems with his cervical spine and pain in the shoulders. He has been on IV antibiotics. His white blood cell count is normal. Hematocrit is 36%. BUN and creatinine are 27 and 1.6. Total bilirubin is 3.39, and that is slowly improving. His trocar site seems to be intact. Abdomen is mostly soft. He has a full liquid diet. His heart rate is 61, blood pressure 151/77, O2 saturation 92%, and he is afebrile. cc: Aurora Gramajo MD
[2019-09-21] MEDS: MORPHINE IV PRN ×4 (08:39→21:11)
[2019-09-21] MEDS: MIRALAX PO SCH (08:40)
[2019-09-21] MEDS: COREG PO SCH ×2 (08:40→21:10)
[2019-09-21] MEDS: ELIQUIS PO SCH ×2 (08:40→21:10)
[2019-09-21] MEDS: CORDARONE PO SCH (08:41)
--- NOTE | 2019-09-21 09:47 | Diag Imaging Result Doc PS360 ---
EXAM: CHEST-2 VIEWS HISTORY: hypoxia TECHNIQUE: Two views COMPARISON: 09/20/2019 FINDINGS: The heart remains enlarged. There are sternal wires and a left-sided pacemaker. There is a small to moderate-sized left pleural effusion with a small right pleural effusion. There is atelectasis in the left lung base and there may be underlying infiltrates as well. Infiltrates in the mid right lung are unchanged. IMPRESSION: Mild interval worsening Electronically signed by Vinicius Tiwari 09/21/2019 9:45 AM
--- NOTE | 2019-09-21 11:13 | ECHO REPORT ---
ORDER DATE: 09/20/2019 INDICATION FOR STUDY: Coronary disease. Pacemaker. History of bypass. FINDINGS: 1. The right atrium is poorly visualized. 2. Mild tricuspid regurgitation. RV systolic pressure of 53 suggesting pulmonary hypertension. 3. The right ventricle has reduced RV systolic function with normal size. This was poor visualization of the right ventricle. 4. Mild pulmonic insufficiency. 5. Mild left atrial enlargement with a volume index of 33. 6. No mitral valve prolapse. Mild mitral regurgitation. No mitral stenosis. 7. Normal LV size, end-diastolic dimension of 5.2 cm. Normal wall thicknesses with a posterior and interventricular septal wall thickness of 1.0 cm each. Reduced LV systolic function with an estimated EF of 30 to 35 percent. There is global hypokinesis but more prominent anteroseptal hypokinesis. 8. The aortic valve is calcified with a restriction in motion, mild aortic insufficiency. Peak gradient across the valve is 25 with a mean of 15. The dimensionless index is 0.24. The valve area by continuity equation is 0.8. This could possibly represent low-output severe aortic stenosis. 9. The aorta appears normal in visualized segments. 10. No pericardial effusion identified. cc: MD eRnny Hobbs MD
--- NOTE | 2019-09-21 11:56 | GASTROENTEROLOGY PROGRESS NOTE ---
DATE: 09/21/2019 SUBJECTIVE: Mr. Benavides is an 79-year-old male, resting in bed. The patient has been complaining that he did not sleep well last night because his neck and shoulder were hurting. He also had some mild abdominal tenderness. The patient is currently on a full liquid diet, and was able to tolerate his diet well. OBJECTIVE: Vital Signs: Temperature 98.8 degrees, pulse 61, respirations 22, blood pressure 151/77, oxygen saturation is 92% on 4 L nasal cannula. The patient's weight is 150 pounds. BMI is 22.8 kg/m2. General: He is alert and oriented x3, and in no acute distress. HEENT: Pale conjunctivae. Mild icterus. PERRL. Neck: Supple. Lungs: Clear to auscultation. Cardiovascular: Regular rate and rhythm. Abdomen: Mildly distended, tender. Has incisions with Steri-Strips intact. Active bowel sounds heard in all 4 quadrants. Extremities: No clubbing, no cyanosis, no edema. Pedal pulses 2+ present bilaterally. Neurological: Alert and oriented x3. LABORATORY DATA: WBCs are 9.24, RBC 3.83, hemoglobin 12.0, hematocrit is 36.2, platelet count is 99,000. Sodium 133, potassium 3.8, chloride 94, carbon dioxide is 27, anion gap 12, BUN 27, creatinine is 1.6, glucose 105, calcium 8.4. Total bilirubin 3.39, AST 43, ALT 92, alkaline phosphatase 110, albumin is 3.1. IMAGING: Chest x-ray today showed mild interval worsening. IMPRESSION AND PLAN: Gallstone pancreatitis Ascending cholangitis Acute kidney injury Abnormal liver enzyme tests Bacteremia Hyponatremia A-fib CAD PLAN: Mr. Benavides is an 79-year-old, male s/p cholecystectomy. The patient is still complaining of abdominal tenderness. The patient does have bacteremia with Klebsiella pneumonia. He is currently receiving antibiotic, Zosyn. We will continue PPIs daily. For his bowel regimen he is on MiraLAX twice a day. His LFTs have been trending downward. We will continue to monitor his liver enzymes, and follow the plan of care per PCP. This plan was discussed with Dr. Wright. Please call us for any further questions or concerns. Dictated by KATIAN Walsh for Sukhi Wright MD Physician Attestation I have seen and examined the patient. I have discussed and reviewed the note by Marjorie AMBRIZ and agree with findings and plan as documented. He reports post-surgical and back pain. No worsening with PO intake. +BM. No rectal bleeding, N/V. Recommend encouraging PO liquids given rising Cr. He is on antibiotics for bacteremia. LFTs downtrending. No need for ERCP as long as his LFTs continue to improve. Will follow with you. XOCHITL
--- NOTE | 2019-09-21 13:17 | EKG Report ---
Test Performed on : 09/21/2019 12:41:44 PM Test Reason : CHF/CAD Blood Pressure : / mmHG Vent. Rate : 060 BPM Atrial Rate : 060 BPM P-R Int : 246 ms QRS Dur : 110 ms QT Int : 542 ms P-R-T Axes : 000 085 167 degrees QTc Int : 542 ms Atrial-paced rhythm with prolonged AV conduction ST & T wave abnormality, consider anterior ischemia Prolonged QT Abnormal ECG When compared with ECG of 19-SEP-2019 10:44, Electronic atrial pacemaker has replaced Ectopic atrial rhythm. T wave inversion more evident in Anterior leads Confirmed by Aicha PEREZ, Vel Armas ([id number]) on 09/22/2019 9:25:04 AM
[2019-09-21] MEDS: ZAROXOLYN PO SCH (15:08)
[2019-09-21] MEDS: LASIX IV SCH (15:39)
--- NOTE | 2019-09-21 16:22 | CARDIOLOGY CONSULTATION ---
DATE: 09/21/2019 CONSULTATION REQUESTED BY: Hospitalist service. REASON FOR CONSULTATION.: Congestive heart failure, edema. CHIEF COMPLAINT: Abdominal pain. HISTORY: Mr. Benavides is an 79-year-old male, who presented to the emergency room on 09/16 at about 3:30 p.m. The patient says that the night prior to admission he ate some stuff that made him nauseous and vomited. The following day he presented to work, on his way to work he developed significant abdominal pain and dyspnea and ended up in the ER. They did a CT of the abdomen on 09/16 that shows possible cholecystitis. His blood work showed a lipase of 2138 units/L, upper normal is 60. His white count was 13,380. They did an abdominal ultrasound that shows cholelithiasis with sludge in the gallbladder and abdominal aortic aneurysm. Because of that he was diagnosed with acute cholecystitis, taken to the operating room on 09/18. The pathology confirms the suspicion of cholelithiasis with cholecystitis, [id number]. Since admission, the patient has developed swelling and he is not feeling too well at this time. A proBNP level has been checked, today it is 11,167. His x-ray from admission showed pulmonary edema, left pleural effusion. Subsequent x-ray today shows interval worsening. The patient denies having any chest pain. He has some cough. Of note, his blood culture grew Klebsiella pneumoniae. PAST MEDICAL HISTORY: Positive for coronary heart disease, severe. He has had previous coronary bypass surgery for critical left main stenosis back in 1996. He had a vein graft to OM1, vein graft to D1, and mammary artery to LAD. He has been known to have congestive heart failure due to systolic dysfunction. He has had paroxysmal atrial fibrillation. Sick sinus syndrome. He has had acid reflux. He has had shingles. He has had prostate cancer. Hypertension. Kidney stones. Hyperlipidemia. PAST SURGICAL HISTORY: He has had carotid artery surgery in addition to the coronary bypass surgery. He has had kidney extractions, pacemaker implantation. The patient had a pacemaker implanted in January 2018 with good results. He has chronic LV dysfunction with previous imaging study in 2017 indicating ejection fraction of 38%. Left heart catheterization in 2018 showed ejection fraction in the range of 35% to 40%. They just did an echocardiogram on him 09/19 and the preliminary report indicates ejection fraction of 30% to 35% with possible [id number] aortic stenosis, the mean gradient is only 15 mmHg. FAMILY HISTORY: Noncontributory. SOCIAL HISTORY: The patient lives with his . He has children. He is retired. 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 Mother had a stroke. Father had no heart history. HOME MEDICATIONS: At the time of this admission included amiodarone 200 mg daily, apixaban 5 mg twice a day, carvedilol 6.25 twice a day, hydrocodone, lisinopril, and nitroglycerin sublingual. ALLERGIES: Prednisone and is very intolerant to statins. REVIEW OF SYSTEMS: At this time is really noncontributory. He really had no worsening on his cardiac status until the onset of the abdominal symptoms. His EKG done today shows atrial paced rhythm with a T-wave abnormality in leads V1 through V4. PHYSICAL EXAMINATION: Vital signs: Today, blood pressure is 151/77, however, has dropped as low as 99/50, pulse 65, temperature 98.7 degrees, respirations 18. General: He is awake, alert. He is looking uncomfortable. HEENT: Mild jugular venous distention. Chest: Significantly diminished breath sounds bilaterally with tubular sounds in the right lung. Heart: Sounds are regular, rhythmic with a systolic murmur 2/6 in intensity, this is variable. No gallop is noted. Abdomen: Slightly tender. Extremities: Showed 2+ edema bilaterally. Pulses are diminished. Neurological Exam: Nonfocal. Moves 4 extremities. IMPRESSION: 1. Patient who has decompensation of chronic systolic heart failure. The patient is known to have ischemic cardiomyopathy, previous coronary bypass surgery.This is secondary to acute illness,post op state + fluid overload. 2. Gallstone pancreatitis status post cholecystectomy on 09/18. 3. Sick sinus syndrome status post dual- chamber pacemaker implantation. 4. History of paroxysmal atrial fibrillation. 5. Klebsiella pneumonia septicemia probably arising from the gallbladder bed, however, pneumonia due to gram-negative germ cannot be excluded. 6. Hyperlipidemia with intolerance to statins. 7. Previous carotid endarterectomy. 8. Chronic kidney dysfunction, mild. RECOMMENDATION: At this time, we will treat the patient accordingly with broad- spectrum antibiotics. I will give him Lasix and metolazone to try to remove fluid. It is very likely that he developed a significant degree of third-spacing following his gallstone pancreatitis. That should resolve with judicious diuretic therapy. At this point in time, I do not think that we need to embark on a prolific cardiac workup. I would probably like to get a CT scan of the chest to have a better view of his lungs and then perhaps consider a consultation with Pulmonary Service for advice. Thank you for the opportunity to participate in his evaluation. cc: Nick Conley MD MTDD
--- NOTE | 2019-09-21 16:29 | PROGRESS NOTE ---
DATE: 09/21/2019 SUBJECTIVE: Patient today is complaining of some shortness of breath, bilateral lower extremity edema. I have requested an evaluation by cardiology department since this patient has heart failure and worsening infiltrates/edema in the x-ray. OBJECTIVE: Vital signs: Temperature 98.3 degrees, pulse 64, respiratory rate 20, blood pressure 110/48, O2 saturation 91 on nasal cannula. HEENT: Head normocephalic, no trauma. PERRLA. Neck: Supple. No JVD. No masses, central trachea. Chest: Decreased breath sounds globally especially at of level of the bases with some crackles otherwise. Abdomen: Soft, nontender, nondistended, no organomegaly. Extremities: 3+ lower extremity edema. No clubbing, no cyanosis. Neurological: The patient is awake, alert. He is oriented. LABORATORY: WBC 9.2, hemoglobin 12, hematocrit 36.2, platelets 99,000. Sodium 143, potassium 2.8, chloride 94, bicarbonate 27, BUN 27, creatinine 1.6, glucose 105, calcium 8.4, bilirubin 3.3, AST 43, AST 92, alkaline phosphatase 110, albumin 3.1. BNP 1167. ASSESSMENT AND PLAN: 1. Acute onset of abdominal pain secondary to acute pancreatitis, likely due to cholecystitis and gallstone pancreatitis, status post laparoscopic cholecystectomy with intraoperative cholangiogram which did not show any stones. He has been placed on fluids, which I have stopped, and also on antibiotics. 2. Dehydration, resolved. 3. Acute on chronic kidney disease. Likely this is his baseline. BUN and creatinine elevated compared with yesterday. 4. Likely congestive heart failure exacerbation. He has an ejection fraction of 30 to 35% with global hypokinesis. He had recent echocardiogram done yesterday. Cardiology has been consulted. Will continue with diuretics and follow with their recommendations. 5. History of atrial fibrillation. Continue with home medications, and he is also on Eliquis. 6. Leukocytosis, resolved. 7. History of coronary artery disease status post CABG with severe ischemic cardiomyopathy and systolic dysfunction. Cardiology on board. Ejection fraction of 30 to 35%. 8. Pulmonary edema. Continue with diuretics. 9. Hypoxemic respiratory failure. Likely due to fluid overload, possible pneumonia. Continue with antibiotics. cc: Yris Seals DO
[2019-09-21 17:28] LABS: URINE SOURCE CLEAN CATCH
[2019-09-21 17:34] LABS: BILIRUBIN URINE NEGATIVE (NEGATIVE); BLOOD URINE NEGATIVE (NEGATIVE); COLOR YELLOW; GLUCOSE URINE NEGATIVE (NEGATIVE); KETONE URINE NEGATIVE (NEGATIVE); LEUKOCYTES URINE NEGATIVE (NEGATIVE); NITRITE URINE NEGATIVE (NEGATIVE); PH URINE 6.5; PROTEIN URINE NEGATIVE (NEGATIVE); SP GRAVITY URINE 1.008; TURBIDITY URINE CLEAR (CLEAR); UROBILINOGEN URINE NORMAL (NORMAL)
[2019-09-21 17:45] LABS: UR EPITHELIAL CELLS <10 /HPF (<10); URINE BACTERIA NEGATIVE /HPF; URINE WBC <10 /HPF (<10)
[2019-09-21 17:46] LABS: URINE CASTS NONE SEEN; URINE CRYSTALS NONE SEEN; URINE YEAST NONE SEEN
[2019-09-21] MEDS: PROTONIX IV SCH (18:54)
[2019-09-22] MEDS: MIRALAX PO SCH ×3 (00:14→20:04)
[2019-09-22] MEDS: ZOSYN 3.375 GM in NS 50 ML IV SCH ×4 (03:11→21:00)
[2019-09-22 08:07] LABS: CALCIUM 8.4 mg/dL (8.8-10.2); CREATININE 1.8 mg/dL (0.7-1.2); MAGNESIUM 1.9 mg/dL (1.5-2.7)
[2019-09-22] MEDS ORDERED: POTASSIUM CHLORIDE 20% LIQUID PO ONE ×2 (08:17→14:00)
--- NOTE | 2019-09-22 08:35 | CARDIOLOGY PROGRESS NOTE ---
DATE: 09/22/2019 CHIEF COMPLAINT: Shortness of breath, swelling. Cough productive of bloody sputum. SUBJECTIVE: Mr. Benavides is not feeling too good today. He says that he is a little more short of breath than yesterday. He is really coughing up some thick phlegm with specks of blood. Yesterday, his C-reactive protein was found at 149.78 mg/L. His chest x-ray from yesterday showed interval worsening. His echocardiogram on the showed ejection fraction of 30% to 35%. He is not having a whole lot of pain. OBJECTIVE: Vital signs: Blood pressure is 94/46, temperature 98.8 degrees, pulse 81, respirations 14. General: He is awake, acutely and chronically ill, somewhat pale, no distress. HEENT: Slight prominence of jugular veins. Chest: Markedly diminished breath sounds with bilateral rhonchi. Heart: Sounds are distant, regular. I do not hear a gallop or murmur. Abdomen: Soft. No hepatomegaly. Extremities: Showed 1-2+ edema. Neurologic exam: Follows commands, moves all 4 extremities. BLOOD WORK: His sodium is 132, potassium 3.0, BUN 35, creatinine 1.8. IMPRESSION: 1. Patient who presented with acute gallstone pancreatitis. He is status post cholecystectomy. 2. Congestive heart failure systolic chronic secondary to ischemic cardiomyopathy. 3. History of coronary heart disease, previous coronary artery bypass surgery. 4. Bzebj-lr-hlfrwxq kidney dysfunction. 5. Klebsiella pneumonia septicemia, possible case of pneumonia also. 6. History of paroxysmal atrial fibrillation. RECOMMENDATIONS: At this time, I will get a CT scan of the chest. We will give him potassium supplements. We will continue with Lasix and metolazone. We will discuss management with Hospitalist service. We will continue to follow. cc: Nick Conley MD
[2019-09-22] MEDS ORDERED: ZOSYN ONE (09:26)
[2019-09-22] MEDS: COREG PO SCH ×2 (09:31→22:08)
[2019-09-22] MEDS: CORDARONE PO SCH (09:31)
[2019-09-22] MEDS: ZAROXOLYN PO SCH (09:31)
[2019-09-22] MEDS: ELIQUIS PO SCH ×2 (09:31→20:04)
[2019-09-22] MEDS: LASIX IV SCH (10:36)
[2019-09-22 12:00] LABS: ALB/GLOB RATIO 1.1; ALBUMIN 2.8 g/dL (3.5-5.0); DIRECT BILIRUBIN 2.2 mg/dL (0.00-0.20); TOTAL BILIRUBIN 3.32 mg/dL (0.20-1.00); TOTAL PROTEIN 5.3 g/dL (6.3-8.3)
--- NOTE | 2019-09-22 12:00 | PROGRESS NOTE ---
DATE: 09/22/2019 SUBJECTIVE: The patient is feeling a little bit better compared to yesterday, Cardiology Department on board, they have requested a CT of the chest today. He is getting diuretics and as per the patient, he is having good urine output. He is not complaining of too much abdominal pain today. OBJECTIVE: Vital signs: Temperature 98.4 degrees, pulse 47, respiratory rate 16, blood pressure 82/44, oxygen saturation 99 on a Venturi mask. HEENT: Head normocephalic, no trauma. PERRLA. Neck: Supple. He does have some JVD, central trachea. Chest: He has some crackles at the bases. Abdomen: Soft. He has some generalized tenderness to palpation especially periumbilical area right upper quadrant. His wounds are clean. Extremities: 2+ lower extremity edema. No clubbing. No cyanosis. Neurological: The patient is awake, alert. He is oriented. He does have generalized weakness. LABORATORY: Sodium 132, potassium 3, chloride 89, bicarbonate 30, BUN 35, creatinine 1.8, glucose 130, calcium 8.4, magnesium 1.9. ASSESSMENT AND PLAN: 1. Congestive heart failure exacerbation secondary to ischemic cardiomyopathy, we will continue following the recommendations of Cardiology Department. He has been placed on diuretics. He is on beta blockers as well. Kidney function went up probably because of the diuretics, but we will monitor. He is still complaining of shortness of breath. He is on a Venturi mask. 2. Hypoxemic respiratory failure likely due to pulmonary edema. 3. Acute onset abdominal pain secondary to acute pancreatitis, likely due to gallstone pancreatitis. He is status post laparoscopic cholecystectomy with intraoperative cholangiogram, which did not show any stones. He had been placed on fluids initially, but those were stopped. Now he is on diuretics. 4. Dehydration resolved. 5. Acute on chronic kidney disease, BUN increased a little bit as well as the creatinine, we will monitor. 6. History of atrial fibrillation. Continue with home medications. 7. History of coronary artery disease status post coronary artery bypass graft with severe ischemic cardiomyopathy with systolic dysfunction, as per #1. 8. Bacteremia due to Klebsiella pneumoniae with also possible underlying pneumonia, I will continue with IV antibiotics with Zosyn. New blood culture has been negative for more than 48 hours. cc: Renny Sauceda MD
--- NOTE | 2019-09-22 12:14 | PROGRESS NOTE ---
DATE: 09/22/2019 SUBJECTIVE: Mr. Mike Benavides is an 79-year-old white male, who is now postop day 6 from a laparoscopic cholecystectomy with intraoperative cholangiogram. He was admitted with gallstone pancreatitis. We did do a cholangiogram at the time of surgery, which showed no stones in the extrahepatic bile ducts. His postoperative convalescence has been complicated by possible fluid overload and exasperation of congestive heart failure. He had an abnormal right chest x-ray being seen by Cardiology. His heart rate is 81, blood pressure 82/44, O2 saturation 99%. He is afebrile. He is eating about 50 to 75 percent of his meals. Total bilirubin remains at 3.3. His BUN and creatinine are 35 and 1.8; those are elevated slightly. His abdomen is soft. His trocar sites are intact. cc: Aurora Gramajo MD
--- NOTE | 2019-09-22 12:20 | Diag Imaging Result Doc PS360 ---
EXAM: CT THORAX W/O CONTRAST 09/22/2019 HISTORY: gram negative pneumonia TECHNIQUE: This exam was performed using automated exposure control, adjustment of mA or kV according to patient size, and/or use of iterative reconstruction technique. COMMENT: There are no previous thoracic studies available for comparison, comparison is made with the previous abdominal study of 09/17/2019 where possible. There is ill-defined opacity in both upper lobes and the superior segment of the right lower lobe, lingula and middle lobe. There are atelectatic changes in both lower lobes due to pleural fluid collections more so on the left of the right. The pulmonary opacities particularly that in the middle lobe and right lower lobe, which were visible at the time the previous abdominal study, are worse. There is extensive coronary atherosclerosis. There is no evidence of significant adenopathy. IMPRESSION: Pulmonary edema and/or pneumonia. Pleural effusions. Electronically signed by Eric Smith 09/22/2019 12:17 PM
[2019-09-22] MEDS: MORPHINE IV PRN (14:50)
--- NOTE | 2019-09-22 15:20 | GASTROENTEROLOGY PROGRESS NOTE ---
DATE: 09/22/2019 SUBJECTIVE: Mr. Benavides is an 79-year-old male who was sitting in bed having breakfast. The patient mentioned that his abdominal pain is much better today. He denied any nausea or vomiting. The patient has denied having a bowel movement today. OBJECTIVE: Vital Signs: Temperature 98.1 degrees, pulse 62, respirations 22, blood pressure 101/40, oxygen saturation 99% on Ventimask. The patient's weight is 172 pounds. BMI is 26.2 kg/m2. General: He is alert, oriented x3, and in no acute distress. HEENT: Pale conjunctivae. No icterus. PERRL. Neck: Supple. Lungs: Clear to auscultation. Cardiovascular: Regular rate and rhythm. Abdomen: Soft, mildly tender with incisions dry and intact. Active bowel sounds heard in all 4 quadrants. Extremities: No clubbing, no cyanosis, no edema. Pedal pulses are present bilaterally. Neurologic: Alert, oriented x3. LABORATORY DATA: The patient has no new hematology. Chemistries: Sodium 132, potassium 3.0, chloride 89, carbon dioxide 30, anion gap 13, BUN 35, creatinine is 1.8, glucose is 130, calcium 8.4, magnesium 1.9. Total bilirubin is 3.32, AST 32, ALT 63, alkaline phosphatase 116. Albumin is 2.8. IMAGING: The patient's chest CT today showed pulmonary edema and pneumonia, pleural effusion. IMPRESSION AND PLAN: 1. Gallstone pancreatitis. 2. Ascending cholangitis. 3. Acute kidney injury. 4. Abnormal liver enzymes. 5. Bacteremia. 6. Hyponatremia. 7. Hypokalemia. 8. Atrial fibrillation. 9. Coronary artery disease. PLAN: Mr. Benavides is an 79-year-old male status post cholecystectomy. The patient's abdominal pain is currently improving. He is receiving antibiotic, Zosyn, for his bacteremia. We will use PPI daily. He is on MiraLAX 17 g p.o. for his bowel regimen. The patient is receiving potassium chloride 40 mEq p.o. once. His liver enzymes are trending downward, he may not need an ERCP. We will continue to monitor the patient and follow the plan of care per PCP. This plan was discussed with Dr. Wright. Please call us for any further questions. Dictated by KATINA Walsh for Sukhi Wright MD [facility]
[2019-09-22] MEDS: PROTONIX IV SCH (18:22)
[2019-09-23] MEDS: ZOSYN 3.375 GM in NS 50 ML IV SCH ×4 (03:10→21:31)
--- NOTE | 2019-09-23 09:19 | PROGRESS NOTE ---
DATE: 09/23/2019 SUBJECTIVE: Mr. Mike Benavides is an 79-year-old white male status post laparoscopic cholecystectomy with intraoperative cholangiogram. He has had an abnormal chest x-ray, and he is also having a full stack python developer see him because of congestive heart failure. His white blood cell count is now normal. His hematocrit is stable at 36%. His BUN and creatinine are 35 and 1.8. His total bilirubin is slowly returning towards normal. An intraoperative cholangiogram showed flow into the duodenum, but Radiology read this as possibly debris in the distal common duct. His trocar sites are healing well. His abdomen is soft. GI medicine is also seeing the patient. He is on a full liquid diet. I feel his diet can be advanced as tolerated. cc: Aurora Gramajo MD
[2019-09-23 09:22] LABS: CALCIUM 8.7 mg/dL (8.8-10.2); CREATININE 2.1 mg/dL (0.7-1.2); MAGNESIUM 2.1 mg/dL (1.5-2.7); POTASSIUM 3.3 mmol/L (3.5-5.1)
[2019-09-23] MEDS ORDERED: KLOR-CON PO ONE (09:42)
[2019-09-23] MEDS: MIRALAX PO SCH ×2 (09:53→21:31)
[2019-09-23] MEDS: ZAROXOLYN PO SCH (09:53)
[2019-09-23] MEDS: CORDARONE PO SCH (09:53)
[2019-09-23] MEDS: COREG PO SCH ×3 (09:53→21:32)
[2019-09-23] MEDS: ELIQUIS PO SCH ×2 (09:53→21:31)
[2019-09-23] MEDS: LASIX IV SCH (10:33)
--- NOTE | 2019-09-23 11:04 | Diag Imaging Result Doc PS360 ---
EXAM: CHEST-2 VIEWS 09/23/2019 HISTORY: chf, volume overload TECHNIQUE: PA and lateral chest COMMENT: The volume of pleural fluid on the left has improved since 09/21/2019. There also appears to be some improvement in the pulmonary edema which was previously present. IMPRESSION: Improved pulmonary edema and left pleural effusion. Electronically signed by Eric Smith 09/23/2019 11:02 AM
--- NOTE | 2019-09-23 11:20 | CARDIOLOGY PROGRESS NOTE ---
DATE: 09/23/2019 CHIEF COMPLAINT: Shortness of breath, weakness. SUBJECTIVE: Mr. Benavides is still not feeling too well. He is still coughing up some thick phlegm blood-tinged. Nevertheless, he is able to lay flat and he seems to be a little more comfortable than yesterday. He is also answering a little more readily than yesterday. I spoke with his about his condition last night at about 6:30 p.m. PHYSICAL EXAMINATION: Vital signs: Blood pressure is 90/34, temperature 98.8 degrees, pulse 57, respirations 14. General: He is awake, follows commands. HEENT: Unremarkable. He has multiple bruises of his hands, arms. Chest: Reveals diminished breath sounds bilaterally. Heart: Sounds are distant, regular. I do not hear gallop. He does have a systolic murmur that appears to be intermittent over the aortic area 2/6 in severity. Abdomen: Slightly distended, nontender. Extremities: Showed decrease pulses. He has 1+ edema. Neurologic exam: Follows commands, moves all 4 extremities. BLOOD WORK: Pending for this morning. IMPRESSION: 1. Patient with congestive heart failure systolic [id number], pulmonary edema. There is also a component of noncardiogenic pulmonary edema on him. 2. Septicemia secondary to Klebsiella secondary to gallstone pancreatitis, acute cholecystitis. 3. Severe coronary heart disease, previous coronary artery bypass surgery. 4. Sick sinus syndrome status post permanent pacemaker implantation. 5. Chronic kidney disease. 6. Hypokalemia. RECOMMENDATIONS: At this time, we will continue with Lasix and metolazone. Will continue to replace potassium. We did replace potassium yesterday. We will see how he does today. He is still very weak and I believe he is going to require to go to a [facility] facility or a rehab facility upon discharge. We will follow him. cc: Nick Conley MD [facility]
--- NOTE | 2019-09-23 11:25 | PROGRESS NOTE ---
DATE: 09/23/2019 SUBJECTIVE: The patient is still short of breath but feeling a little bit better compared to yesterday. He has BUN and creatinine increased also. He is not going to receive Lasix today. Cardiology on board. I will replace the potassium. He has a urine output of 1.7 L reported. OBJECTIVE: Vital signs: Temperature 98.8 degrees, pulse 57, respiratory rate 14, blood pressure 90/34, oxygen saturation 89 on room air. HEENT: Head normocephalic, no trauma. PERRLA. Neck: Supple. No JVD. No masses. Central trachea. Chest: Some crackles at the bases. Decreased breath sounds at the bases as well. Abdomen: Soft. He has some generalized tenderness to palpation, especially periumbilical area and right upper quadrant. His wounds are clean. Extremities: 2+ lower extremity edema. No clubbing. No cyanosis. Neurological: The patient is awake, alert, he is oriented. He does have generalized weakness. LABORATORY DATA: Sodium 134, potassium 3.3, chloride 88, bicarbonate 31, BUN 41, creatinine 2.1, glucose 118, calcium 8.7, magnesium 2.1. ASSESSMENT AND PLAN: 1. Congestive heart failure secondary to ischemic cardiomyopathy. We will continue following the recommendations of Cardiology Department. He received some diuretics and there is not more furosemide for today. His BUN and creatinine are going up. We will monitor for now. 2. Hypoxemic respiratory failure secondary to pulmonary edema, aware. 3. Acute onset of abdominal pain secondary to acute pancreatitis, likely due to gallstone pancreatitis, status post laparoscopic cholecystectomy with intraoperative cholangiogram which did not show any stones. He had been placed on aggressive IV fluids initially due to the pancreatitis, but those were stopped. Now he received some diuretics. 4. Dehydration, resolved. 5. Acute on chronic kidney disease. BUN and creatinine trending up. He is not going to get any Lasix today. 6. History of atrial fibrillation. Continue with home medications. 7. History of coronary artery disease status post coronary artery bypass graft with severe ischemic cardiomyopathy and systolic dysfunction, per #1. 8. Bacteremia due to Klebsiella pneumoniae with also possible underlying pneumonia. I will continue with IV antibiotics with Zosyn. New blood culture has been negative for more than 48 hours. cc: Renny Sauceda MD
--- NOTE | 2019-09-23 14:47 | GASTROENTEROLOGY PROGRESS NOTE ---
DATE: 09/23/2019 SUBJECTIVE: Mr. Benavides is an 79-year-old, male who was sitting in bed. The patient complains of shortness of breath but his abdominal pain is much better. He has denied any nausea and vomiting. The patient has denied having any bowel movements today. He did have one yesterday. OBJECTIVE: Vital Signs: Temperature 98.8 degrees, pulse 57, respirations 14, blood pressure 90/34, oxygen saturation 89% on room. The patient's weight is 156 pounds. BMI is 23.8 kilograms per meter squared. General: He is alert, oriented x3, and in no acute distress. HEENT: Pale conjunctivae. Neck: Supple. Lungs: Diminished breath sounds heard in the anterior marcano in the lower bases. Cardiovascular: Regular rate. Abdomen: Soft. Mildly tender. Incisions dry and intact. Active bowel sounds present in all four quadrants. Extremities: No clubbing or cyanosis. Neurologic: Alert and oriented x3. LABS: The patient has no new hematology. Chemistry is sodium 134, potassium 3.3, chloride is 88, carbon dioxide 31, anion gap 15. BUN 41, creatinine is 2.8, glucose 118, calcium 9.7. IMAGING: Chest x-ray today showed improved pulmonary edema and pleural effusion. IMPRESSION AND PLAN: 1. Gallstone pancreatitis 2. Elevated LFT's 3. Bacteremia 4. Atrial fibrillation 5. CAD 6. CHF PLAN: Mr. Benavides 79-year-old male status post cholecystectomy. The patient's liver enzymes have started to trend down. Will repeat USG abdomen to reevaluate the CBD for any remnant Debris. Patient may not need an ERCP if his liver enzymes keep trending downwards. He is on PPIs daily. The patient is on antibiotic Zosyn for his bacteremia. The patient is also on MiraLAX 17 grams p.o. twice a day for his bowel regimen. We will continue to monitor the patient's liver enzymes. This plan was discussed with Dr. Curran. Please call us for any further questions or concerns. Dictated by KATINA Walsh for Keaton Curran MD cc: Keaton Curran MD I have seen and examined the patient myself and I agree with the above plan of care. Please call us with any further questions or concerns. [facility]
--- NOTE | 2019-09-23 15:32 | Diag Imaging Result Doc PS360 ---
US ABDOMEN-COMPLETE - 09/23/2019 INDICATION: eval CBD for debris or sludge COMPARISON: 09/18/2019 FINDINGS: There is no biliary dilation. The gallbladder has been removed. Common bile duct is normal. The common bile duct measures 4 mm. The liver, pancreas, spleen, and both kidneys are normal. Aorta, IVC, and main portal vein are patent. IMPRESSION: Negative exam. Electronically signed by Marito Baird 09/23/2019 3:30 PM
[2019-09-23] MEDS: PROTONIX IV SCH (17:48)
[2019-09-24] MEDS: ZOSYN 3.375 GM in NS 50 ML IV SCH ×4 (03:12→20:56)
[2019-09-24 08:22] LABS: CALCIUM 8.8 mg/dL (8.8-10.2); CREATININE 2.2 mg/dL (0.7-1.2); MAGNESIUM 2.2 mg/dL (1.5-2.7); POTASSIUM 2.9 mmol/L (3.5-5.1)
[2019-09-24] MEDS ORDERED: POTASSIUM CHLORIDE 20% LIQUID PO ONE (08:24)
--- NOTE | 2019-09-24 08:26 | PROGRESS NOTE ---
DATE: 09/24/2019 SUBJECTIVE: Mr. Benavides is now postop day 5 from laparoscopic cholecystectomy with intraoperative cholangiogram. His trocar incisions are healing well. He is tolerating a regular diet. He is being diuresed per our hospitalist and Dr. Conley. Because of congestive heart failure, his creatinine has increased to 2.1. He is sitting up this morning and feels like his breathing has improved. His heart rate is 74, blood pressure 129/79, O2 saturation 98%. T-max is 99 degrees. He is on IV antibiotics for presumed pneumonia, IV Zosyn. The dose of that may have to be changed according to his creatinine. His BUN and creatinine are 41 and 2.1. An abdominal ultrasound was ordered by GI Medicine, and the common bile duct measures 4 mm. Liver function tests were not ordered today. Overall, I think there are no intra-abdominal problems from his laparoscopic cholecystectomy. cc: Aurora Gramajo MD
[2019-09-24] MEDS: MIRALAX PO SCH ×2 (08:49→20:57)
[2019-09-24] MEDS: CORDARONE PO SCH (08:49)
[2019-09-24] MEDS: COREG PO SCH ×3 (08:49→20:57)
[2019-09-24] MEDS: ELIQUIS PO SCH ×2 (08:49→20:56)
[2019-09-24] MEDS: ZAROXOLYN PO SCH (08:49)
--- NOTE | 2019-09-24 13:55 | PROGRESS NOTE ---
DATE: 09/24/2019 SUBJECTIVE: The patient seems to be feeling a little bit better compared to yesterday. He is still on a Venturi mask. Blood pressure is stable. He had a good urine output of 1.8 L. His potassium level is low. I will replace it with 40 mg in the morning and also in the afternoon. His kidney function is getting a little bit worse, so I have stopped the metolazone, and he is not getting furosemide today. Actually, I discussed the case with Dr. Conley, and he requested to put this patient on Lasix p.o. 80 mg tomorrow, every other day, stop the metolazone. Also, we discussed about giving him an extra dose of potassium today and decrease the amount of Eliquis from 5 mg twice a day to 2.5 mg twice a day. I will also check a chest x-ray in the morning. OBJECTIVE: Vital Signs: Temperature 99 degrees, pulse 74, respiratory rate 16, blood pressure 129/79, oxygen saturation 95% on a Venturi mask. HEENT: Head normocephalic. No trauma. PERRLA. Neck: Supple. No JVD. No masses. Central trachea. Chest: Some crackles at the bases. Decreased breath sounds at the bases as well. Abdomen: Soft. He has some generalized tenderness to palpation especially periumbilical area and right upper quadrant. His wounds are clean. Extremities: 2+ lower extremity edema. No clubbing. No cyanosis. Neurological: The patient is awake and alert. He is oriented. He does have generalized weakness. LABORATORY DATA: Sodium 130, potassium 2.9, chloride 83, bicarbonate 36, BUN 47, creatinine 2.2, glucose 110, calcium 8.8, magnesium 2.2. ASSESSMENT AND PLAN: 1. Congestive heart failure exacerbation with fluid overload secondary to ischemic cardiomyopathy. We will continue following the recommendations of Cardiology Department. Dr. Conley has requested to stop the metolazone and give him Lasix 80 tomorrow by mouth. I will also get a new chest x-ray in the morning. We will monitor his BUN and creatinine closely. 2. Hypoxemic respiratory failure secondary to fluid overload/pulmonary edema. 3. Acute onset of abdominal pain secondary to acute pancreatitis. He is status post laparoscopic- assisted cholecystectomy with intraoperative cholangiogram, seems to be much better. Initially, he received a lot of fluids. 4. Dehydration, resolved. 5. Acute on chronic kidney disease. BUN and creatinine trending up but he has been having good urine output. He is not going to get any Lasix today. I have stopped also the metolazone. 6. History of atrial fibrillation. Continue home medications. I have decreased the dose of the Xarelto to 2.5 because of his age and kidney dysfunction. 7. History of coronary artery disease status post coronary artery bypass graft with severe ischemic cardiomyopathy and systolic dysfunction, per #1. Cardiology Department on board. 8. Bacteremia due to Klebsiella pneumonia with also possible underlying pneumonia. I will continue with IV Zosyn. New blood culture has been negative for more than 48 hours. It seems like this patient is recovering slowly. His kidney function is trending up. We have stopped the Lasix IV, and he will be on 80 of Lasix started tomorrow by mouth, every other day. This has been suggested by Cardiology Department. On the other hand, I have decreased the dose of the Eliquis to 2.5 mg due to his age and kidney function. I will repeat a new chest x-ray in the morning as well. After discussing the case with Dr. Conley, it has been decided to keep this patient during the weekend and see how he does at the beginning of the week so he can go home. Likely, he will need to go home with home health due to weakness. cc: Renny Sauceda MD
--- NOTE | 2019-09-24 13:59 | CARDIOLOGY PROGRESS NOTE ---
DATE: 09/24/2019 CHIEF COMPLAINT: Shortness of breath. Abdominal pain. SUBJECTIVE: Mr. Benavides is feeling a little better today. He is not having any pain. He is a little stronger, sitting upright. OBJECTIVE: Vital Signs: Temperature 99 degrees. Pulse 74. Respirations 16. Blood pressure 129/79. Telemetry indicates a paced rhythm. Neck veins are not distended. Chest: Shows diminished breath sounds without rales. Heart sounds: Regular and rhythmic with a systolic murmur over the aortic area, 2/6. Abdomen: Nontender. Extremities: Show no edema now. Neurologic: Follows commands, moves all 4 extremities. IMPRESSION: 1. A patient who presented with acute gallstone pancreatitis, complicated with septicemia due to Klebsiella pneumonia. He is status post cholecystectomy that took place on 09/19/2019. 2. Decompensated congestive heart failure, systolic, chronic. The patient has underlying ischemic cardiomyopathy with previous coronary artery bypass surgery. 3. Sick sinus syndrome, status post permanent pacemaker. 4. Fkrbf-ae-[id number] renal disease. 5. Hypokalemia secondary to aggressive diuretic therapy. RECOMMENDATIONS: At this time we will review his morning blood work that is pending and then, according to that, we will decide on further diuretic therapy. At this time we are awaiting the results of his morning basic metabolic profile. The patient seems to be improving, and we may consider discharge on Friday to home if the is willing to manage him at home, as well as we probably will have to arrange for home health and physical therapy at home to improve his strength. We will discuss with Dr. Sauceda. cc: Nick Conley MD
--- NOTE | 2019-09-24 15:34 | GASTROENTEROLOGY PROGRESS NOTE ---
DATE: 09/24/2019 SUBJECTIVE: Mr. Benavides is an 79-year-old, male who was sitting on the side of the bed. The patient denied any abdominal pain, nausea or vomiting. He said he was feeling much better but was having breathing problems and is on corie mask. He did have a couple of bowel movements yesterday, today he has denied any. OBJECTIVE: Vital Signs: Temperature 99.0 degrees, pulse 74, respirations 16, blood pressure 129/79, oxygen saturation 95% on corie mask. Patient's weight is 151 lb. BMI is 23.0 kg/m2. General: He is alert, oriented x3, and in no acute distress. HEENT: Pale conjunctivae. No icterus. PERRLA. Neck: Supple. Lungs: Diminished breath sounds heard in the anterior marcano. Cardiovascular: Regular rate and rhythm. Abdomen: Soft, mildly distended. Incisions dry and intact. Active bowel sounds heard in all 4 quadrants. Extremities: No clubbing, no cyanosis, 1+ pitting edema in the lower extremities. Neurologic: Alert, oriented x3. LABORATORY: The patient has no new hematology. His chemistry with a sodium of 130, potassium 2.9, chloride 83, carbon dioxide 36, anion gap 11, BUN 47, creatinine 2.2, glucose 110, calcium 8.8, magnesium 2.2. IMPRESSION: - Gallstone pancreatitis - resolved - Ascending cholangitis - Acute kidney injury - improving - Abnormal liver enzyme tests - Bacteremia - Hyponatremia - A-fib - CHF PLAN: Mr. Benavides is an 79-year-old, male, status post cholecystectomy. The patient's liver enzymes are trending downward. The patient currently denies any abdominal pain, nausea, vomiting. We will continue patient on PPI's . He is receiving antibiotics, Zosyn, for his bacteremia. The patient can follow us up as an outpatient in 4 weeks after he is discharged. For now, we will sign off. Please call us with any further questions. This plan was discussed with Dr. Wright. Dictated by KATINA Walsh for Sukhi Wright MD Physician Attestation I have seen and examined the patient. I have discussed and reviewed the note by Marjorie AMBRIZ and agree with findings and plan as documented. His gallstone pancreatitis as resolved and LFTs have been downtrending. Patient denies N/V, abdominal pain and tolerating PO. MARIE is improving. +BMs. Will sign off. Please call with questions. [facility]
[2019-09-24] MEDS ORDERED: KLOR-CON PO ONE (16:00)
[2019-09-24] MEDS: PROTONIX IV SCH ×2 (16:55→21:01)
[2019-09-25] MEDS: ZOSYN 3.375 GM in NS 50 ML IV SCH ×4 (03:11→21:06)
[2019-09-25 07:45] LABS: BASO# 0.04 X1000 (0.0-0.2); BASO% 0.4 % (0.0-0.8); EOS# 0.06 X1000 (0.0-0.7); EOS% 0.7 % (0.0-10.0); HEMATOCRIT 34.2 % (42.0-52.0); HEMOGLOBIN 11.5 g/dL (14.0-18.0); IMM GRAN# 0.14 X1000 (0.0-0.04); IMM GRAN% 1.5 % (0.0-0.5); LYMPH# 0.67 X1000 (1.2-3.4); LYMPH% 7.3 % (20.5-51.1); MCH 31.4 PG (27-31); MCHC 33.6 g/dL (33-37); MCV 93.4 FL (81-99); MONO# 1.01 X1000 (0.11-0.59); MPV 10.4 FL (7.4-10.4); NEUT# 7.24 X1000 (1.4-6.5); NEUT% 79.1 % (42.2-75.2); PLT 205 X1000 (130-400); RBC 3.66 XMIL (4.7-6.1); RDW 14.2 % (11.5-14.5); WBC 9.16 X1000 (4.8-10.8)
[2019-09-25 08:12] LABS: CALCIUM 8.3 mg/dL (8.8-10.2); CREATININE 1.8 mg/dL (0.7-1.2); MAGNESIUM 2.4 mg/dL (1.5-2.7); PHOSPHORUS 3.2 mg/dL (2.7-4.5); POTASSIUM 3.2 mmol/L (3.5-5.1)
--- NOTE | 2019-09-25 09:24 | Diag Imaging Result Doc PS360 ---
EXAM: CHEST-2 VIEWS HISTORY: SOB TECHNIQUE: Two views COMPARISON: 09/23/2019 FINDINGS: The lungs are well expanded. There are sternal wires and a left pacemaker. The heart is borderline mildly prominent. Tiny pleural effusions. There are sutures in the right lung base. No significant pulmonary edema. IMPRESSION: Mild interval improvement Electronically signed by Vinicius Tiwari 09/25/2019 9:22 AM
[2019-09-25] MEDS: ELIQUIS PO SCH ×2 (09:31→21:06)
[2019-09-25] MEDS: COREG PO SCH ×2 (09:31→21:05)
[2019-09-25] MEDS: MIRALAX PO SCH ×2 (09:31→21:06)
[2019-09-25] MEDS: CORDARONE PO SCH (09:31)
[2019-09-25] MEDS: LASIX PO SCH (09:31)
[2019-09-25] MEDS ORDERED: KLOR-CON PO ONE (11:14)
--- NOTE | 2019-09-25 11:48 | PROGRESS NOTE ---
DATE: 09/25/2019 SUBJECTIVE: Patient reports breathing much better in comparing with previous days. No acute issues noted as per nursing staff overnight. OBJECTIVE: Vital Signs: Temperature 97.7 degrees, heart rate 64, respiratory 19, blood pressure 115/50, O2 saturation 98% on Venturi mask. General Examination: This is a chronically ill- looking, 79-year-old male, lying in bed, in no acute distress. Cardiovascular: S1, S2 heard. Irregularly irregular heart rhythm. No murmurs, gallops, or rubs. Respiratory: Minimal crackles noted in both pulmonary bases. Patient not using any accessory muscles or having work of breathing. Abdomen: Soft. Mild tenderness to palpation around the periumbilical area and right upper quadrant. No signs of peritoneal irritation. His wounds are clean. Extremities: 2+ pitting edema noted in both lower extremities. No clubbing or cyanosis. Neurological: Patient is awake, alert. Moves 4 extremities. LABORATORY DATA: White cell count 9.6, hemoglobin 11.5, hematocrit 34.2, platelets 205,000, with BMP that reveals creatinine 1.8 with sodium 133 and potassium 3.2. ASSESSMENT AND PLAN: 1. Congestive heart failure with fluid overload secondary to ischemic cardiomyopathy. There has been a change in medications since yesterday, Lasix 80 mg has been given to him every 48 hours. So, renal function is improving and we will continue with the same management. 2. Hypoxemic respiratory failure secondary to pulmonary edema. He continues to require oxygen by Venturi mask. We will try to wean off oxygen today. 3. Acute pancreatitis, status post laparoscopic cholecystectomy, improving. We will continue to monitor. 4. Acute on chronic kidney disease. After we have made the modification in the dose of Lasix blood urea nitrogen and creatinine started trending down. We will continue with the same management. Urine output is okay. 5. Paroxysmal atrial fibrillation. We will continue home medications. He has been decreased on the dose of Eliquis from 5 to 2.5 mg p.o. twice daily. 6. History of coronary artery disease, status post coronary artery bypass graft, and systolic dysfunction. Cardiology following this patient. We will continue with same management. 7. Bacteremia due to Klebsiella pneumonia and also possible underlying pneumonia. We will continue with intravenous Zosyn. New cultures has been repeated and those are okay. 8. Disposition. At this point, we will continue with the same medication and on Friday we will check with Cardiology if this patient is okay to go. He may need to have physical therapy evaluation to see if he can go home with home health or if he needs to go to rehab. In any case, we will continue to monitor this patient closely. cc: Peyman Mccabe MD
[2019-09-25] MEDS: PROTONIX IV SCH (17:38)
[2019-09-26] MEDS: ZOSYN 3.375 GM in NS 50 ML IV SCH ×4 (03:19→21:33)
[2019-09-26 07:25] LABS: BASO# 0.04 X1000 (0.0-0.2); BASO% 0.4 % (0.0-0.8); EOS# 0.09 X1000 (0.0-0.7); EOS% 0.9 % (0.0-10.0); HEMATOCRIT 36.5 % (42.0-52.0); HEMOGLOBIN 12.3 g/dL (14.0-18.0); IMM GRAN# 0.18 X1000 (0.0-0.04); IMM GRAN% 1.7 % (0.0-0.5); LYMPH# 0.96 X1000 (1.2-3.4); LYMPH% 9.2 % (20.5-51.1); MCH 31.8 PG (27-31); MCHC 33.7 g/dL (33-37); MCV 94.3 FL (81-99); MONO% 10.6 % (1.7-9.3); MPV 9.9 FL (7.4-10.4); NEUT# 8.04 X1000 (1.4-6.5); NEUT% 77.2 % (42.2-75.2); PLT 243 X1000 (130-400); RBC 3.87 XMIL (4.7-6.1); RDW 14.1 % (11.5-14.5); WBC 10.41 X1000 (4.8-10.8)
[2019-09-26 07:53] LABS: ANISOCYTOSIS 2+; EOS 1 % (1-10); LYMPHS 9 % (21-51); MONO 11 % (1-9); POIKILOCYTOSIS 2+; SEGS 77 % (42-75)
[2019-09-26 07:55] LABS: ALBUMIN 3.2 g/dL (3.5-5.0); CALCIUM 8.5 mg/dL (8.8-10.2); CREATININE 1.8 mg/dL (0.7-1.2); PHOSPHORUS 2.9 mg/dL (2.7-4.5); POTASSIUM 3.1 mmol/L (3.5-5.1)
[2019-09-26] MEDS: MIRALAX PO SCH ×2 (09:04→21:33)
[2019-09-26] MEDS: ELIQUIS PO SCH ×2 (09:07→21:33)
[2019-09-26] MEDS: CORDARONE PO SCH (09:07)
[2019-09-26] MEDS: COREG PO SCH ×2 (09:09→21:33)
[2019-09-26] MEDS ORDERED: KLOR-CON PO ONE (11:30)
--- NOTE | 2019-09-26 12:31 | PROGRESS NOTE ---
DATE: 09/26/2019 SUBJECTIVE: The patient reports breathing better at rest. I am not quite sure if he is able to do any physical therapy, but continues to require oxygen by Venturi mask. OBJECTIVE: Vital Signs: Temperature 98.5, heart rate 67, blood pressure 99/54, O2 saturation 100% on Venturi mask. General: This is a chronically ill-looking, 79-year-old, male, lying in bed in no acute distress. Cardiovascular: S1 and S2 heard. Irregularly irregular rhythm. No murmurs, gallops, or rubs noted. Respiratory: Crackles still noted in both pulmonary bases. The patient is not using any accessory muscles or having work of breathing. Abdomen: Soft. Mild tenderness to palpation around the periumbilical area and right upper quadrant. No signs of peritoneal irritation. Wounds are clean. Extremities: There is 2+ pitting edema noted in both lower extremities. No clubbing or cyanosis noted. Neurological: Patient alert and oriented x3. Moves all 4 extremities. LABORATORY DATA: Reviewed. White cell count is normal, with hemoglobin 12.3, hematocrit 36.5, platelets 243,000. Renal function 1.8. Potassium 3.1. ASSESSMENT AND PLAN: 1. Acute respiratory failure secondary to congestive heart failure secondary to ischemic cardiomyopathy. The patient continues to require high amounts of oxygen, in this case, oxygen by Venturi mask. The patient is receiving Lasix 80 mg intravenously every 48 hours, so will continue with the same management. 2. Acute pancreatitis, status post laparoscopic cholecystectomy. Improving. Will continue to monitor. 3. Acute on chronic kidney disease. Kidney function is much more stable after we have changed the dose of Lasix. Will continue to monitor. 4. Paroxysmal atrial fibrillation. Will continue with Eliquis 2.5 mg by mouth twice daily. 5. History of coronary artery disease, status post coronary artery bypass graft and systolic dysfunction. Cardiology following this patient. From their standpoint, the patient is good to go. 6. Bacteremia due to Klebsiella pneumonia and possible underlying pneumonia. Will continue with Zosyn, and at discharge, the patient can receive levofloxacin to complete 2 weeks. 7. Disposition. At this point, we are working hard on weaning the patient from oxygen. Once we do see that he is requiring oxygen supplementation by nasal cannula, we may start working on discharging him. cc: Peyman Mccabe MD
[2019-09-26] MEDS: DUONEB (A & A) INH SCH ×3 (15:58→23:29)
[2019-09-26] MEDS: PROTONIX IV SCH (17:47)
[2019-09-27] MEDS: ZOSYN 3.375 GM in NS 50 ML IV SCH ×2 (02:55→08:53)
[2019-09-27] MEDS: DUONEB (A & A) INH SCH ×4 (03:32→15:34)
[2019-09-27] MEDS ORDERED: POTASSIUM CHLORIDE 20% LIQUID PO ONE (07:32)
[2019-09-27 07:38] LABS: BASO# 0.02 X1000 (0.0-0.2); BASO% 0.2 % (0.0-0.8); EOS# 0.14 X1000 (0.0-0.7); EOS% 1.3 % (0.0-10.0); HEMATOCRIT 36.5 % (42.0-52.0); HEMOGLOBIN 12.1 g/dL (14.0-18.0); IMM GRAN# 0.13 X1000 (0.0-0.04); IMM GRAN% 1.2 % (0.0-0.5); LYMPH# 0.96 X1000 (1.2-3.4); LYMPH% 9.1 % (20.5-51.1); MCH 31.5 PG (27-31); MCHC 33.2 g/dL (33-37); MCV 95.1 FL (81-99); MONO# 0.96 X1000 (0.11-0.59); MONO% 9.1 % (1.7-9.3); MPV 9.9 FL (7.4-10.4); NEUT% 79.1 % (42.2-75.2); PLT 281 X1000 (130-400); RBC 3.84 XMIL (4.7-6.1); WBC 10.51 X1000 (4.8-10.8)
[2019-09-27 08:25] LABS: CALCIUM 8.5 mg/dL (8.8-10.2); CREATININE 1.7 mg/dL (0.7-1.2); PHOSPHORUS 2.5 mg/dL (2.7-4.5); POTASSIUM 3.4 mmol/L (3.5-5.1)
[2019-09-27] MEDS: ULTRAM PO PRN (08:51)
[2019-09-27] MEDS: LASIX PO SCH (08:52)
[2019-09-27] MEDS: ELIQUIS PO SCH (08:52)
[2019-09-27] MEDS: MIRALAX PO SCH ×2 (08:53→08:59)
[2019-09-27] MEDS: COREG PO SCH (08:53)
[2019-09-27] MEDS: CORDARONE PO SCH (08:54)
--- NOTE | 2019-09-27 09:30 | CARDIOLOGY PROGRESS NOTE ---
DATE: 09/27/2019 CHIEF COMPLAINT: Shortness of breath, abdominal pain. SUBJECTIVE: Mr. Benavides in general is doing better today. He is not having any abdominal pain. He is breathing more comfortably. His chest x-ray shows some improvement on the study done 09/25/2019. OBJECTIVE: Vital signs: Today, blood pressure is 108/50, pulse 65, respirations 16, temperature 98.4. He is awake, alert, in no distress. He is complaining of pain in the neck which is chronic for him. He has cervical spine arthritis, and normally he takes a narcotic. Chest reveals diminished breath sounds bilaterally. Heart sounds are regular and rhythmic. No gallop. There is a systolic murmur, 2/6 intensity, that is intermittent. Abdomen is nontender. Extremities showed no significant edema. Neurologic: Follows commands, moves all 4 extremities. DIAGNOSTIC DATA: Blood work shows hemoglobin 12.1, hematocrit 36.5. Sodium yesterday was 133, potassium 3.1. We do not have any potassium results this morning. I have already ordered an additional 40 mEq of potassium just in case because he has been really hypokalemic for the past 5 days, beginning on 09/22/2019 through 09/26/2019. If his electrolytes are better this morning, he can probably go home today. IMPRESSION: 1. The patient is with acute gallstone pancreatitis with Klebsiella septicemia and pneumonia. This has improved. Status post cholecystectomy 09/19/2019. 2. Decompensated chronic systolic heart failure secondary to ischemic cardiomyopathy. 3. Sick sinus syndrome, status post permanent pacemaker. 4. Acute on chronic kidney disease. 5. Hypokalemia secondary to aggressive diuretic therapy. RECOMMENDATIONS: At this time, we will continue to replace potassium. We will see what his electrolytes are today, and we may let him go home on current medical therapy. He is asking for a pain medication. We will see what the dosage is and prescribe one for this morning. I will discuss with the Hospitalist Service. cc: Nick Conley MD
[2019-09-27] MEDS ORDERED: SODIUM PHOSPHATE 35 MMOL in NS 250 ML IV ONE ×2 (12:11→12:30)
[2019-09-27 16:10] VITALS: BP 84/54
--- NOTE | 2019-09-29 14:06 | DISCHARGE SUMMARY ---
ADMISSION DATE: 09/17/2019 DISCHARGE DATE: 09/27/2019 DISCHARGE DIAGNOSES: 1. Acute pancreatitis. 2. Cholelithiasis, status post laparoscopic cholecystectomy with intraoperative cholangiogram. 3. Acute kidney injury. 4. Dehydration. 5. History of coronary artery disease, status post coronary artery bypass graft with severe ischemic cardiomyopathy with systolic dysfunction. 6. History of atrial fibrillation. CONSULTATIONS: 1. Dr. Keaton Curran from GI. 2. Dr. Vinnie Gramajo from general surgery. 3. Dr. Nick Conley from cardiology. PROCEDURES: 1. Abdomen and pelvis CT showed the possibility of cholecystitis cannot be excluded, apparent duodenitis involving the second portion of the duodenum. 2. Chest x-ray done on admission showed pulmonary edema with left pleural effusion. 3. Laparoscopic cholecystectomy with intraoperative cholangiogram performed by Dr. Gramajo on 09/19/2019. 4. Operative cholangiogram showed questionable debris in the distal common bile duct and/or sphincter of Oddi spasm. 5. Echocardiogram Doppler showed ejection fraction of 30 to 35 percent with global hypokinesis. No pericardial effusion. Mild atrial enlargement. No mitral valve prolapse. 6. Chest CT showed pulmonary edema and/or pneumonia with pleural effusions. 7. Abdominal ultrasound showed negative exam. HOSPITAL COURSE: This is an 79-year-old, male with a past medical history of atrial fibrillation, CHF, and hypertension who presented to the emergency department complaining of periumbilical abdominal pain and nausea. The patient was evaluated in the ER. He was noted to have acute pancreatitis secondary to cholelithiasis so general surgery was consulted and they performed the surgery as we mentioned above. Patient was doing okay from that standpoint. Also, patient had CHF with a low ejection fraction. The patient was started on IV diuretics and was doing fine. We found out also that the patient has bacteremia and the bacteria was sensitive to Levaquin so we started that medication at discharge. Also, patient, as we mentioned before, was in CHF but that condition definitely was getting better. At this point, the patient is okay. We will continue with IV antibiotics for infection. The patient is going to be seen by hub lead in the office in 3 weeks from discharge. DISCHARGE PHYSICAL EXAMINATION: Vital Signs: Temperature 97.4 degrees, heart rate 66, respiratory rate 20, blood pressure 99/50, O2 saturation 99% on room air. General Examination: This is an 79-year-old, male, lying in bed, in no acute distress. Cardiovascular Examination: S1 and S2 heard. No murmurs, gallops, or rubs. Regular rate and rhythm. Respiratory Examination: Minimal coarse breath sounds noted in both pulmonary bases. Patient is not using any accessory muscles or having work of breathing. Abdomen: Soft, nontender to palpation. Bowel sounds present. No organomegaly. Extremities: No clubbing, cyanosis, or edema. Peripheral pulses present in both legs. Neurological Examination: The patient is alert and oriented x3. Moves 4 extremities. DISCHARGE DISPOSITION: Home to self-care. FOLLOWUP: With his primary care physician in a week. LIST OF MEDICATIONS: 1. Coreg 3.125 mg 1 tablet p.o. b.i.d. 2. Lasix 80 mg 1 tablet p.o. every 48 hours. 3. Levofloxacin 750 mg 1 tablet p.o. daily for a week. 4. Eliquis 2.5 mg 1 tablet p.o. b.i.d. 5. Protonix 40 mg 1 tablet p.o. daily. 6. Lisinopril 10 mg 1 tablet p.o. daily. 7. Nitroglycerin 0.4 mg sublingual every 5 minutes as needed for chest pain. 8. [place] 5 one tablet p.o. b.i.d. as needed for pain. 9. Amiodarone 200 mg 1 tablet p.o. daily. cc: Peyman Mccabe MD
== END 2019-09-27 19:30 | disposition home health service (06) | DRG 417 ==
LOC: ED 14:26 → SUATTDRO 18:21 → 3N 18:21
PROVIDERS: ATTEND Internal Medicine

== ENCOUNTER 2019-10-01 15:07 | Inpatient (IN) ==
[2019-10-01] MEDS ORDERED: DOPAMINE 400 MG/D5W 400 MG/500 ML IV.SOLN IV SCH (16:15)
[2019-10-01] MEDS ORDERED: NS 1,000 ML IV SCH (17:30)
[2019-10-01] MEDS ORDERED: 1/2 NS 1,000 ML IV SCH (17:30)
--- NOTE | 2019-10-01 17:40 | Diag Imaging Result Doc PS360 ---
EXAM: CHEST-2 VIEWS - 10/01/2019 HISTORY: SOB TECHNIQUE: Chest two views COMPARISON: 09/25/2019 FINDINGS: Heart size appears within normal limits. There are sternal wires from previous surgery and transvenous cardiac pacemaker again seen. There is a small left pleural effusion which is decreased. There has been interval decrease in airspace disease at the lung bases. There are possibly mild COPD changes. There is no acute consolidation, gross vascular congestion, or pneumothorax identified. IMPRESSION: Decrease in left pleural effusion and basilar airspace disease compared to prior. Electronically signed by Chase Langford 10/01/2019 5:38 PM
[2019-10-01] MEDS: DOPAMINE 400 MG/D5W 400 MG/500 ML IV.SOLN IV SCH (18:00)
[2019-10-01] MEDS: ZOFRAN IV PRN (18:38)
--- NOTE | 2019-10-01 19:30 | HISTORY AND PHYSICAL ---
CHIEF COMPLAINT: Dizziness, hypotension, not able to pee. HISTORY OF PRESENT ILLNESS: He is an 79-year-old white male who was seen my office in March as a new patient. Apparently, he got admitted September 16 for gallstone pancreatitis. He was admitted under the hospitalist for [address] Gramajo did a laparoscopic cholecystectomy. It was complicated by hypotension and pleural effusion. The patient was seen by file clerk. He was discharged home on Friday with blood pressure 80/60 and creatinine 1.7. The patient has been referred to [facility]. I did review all the previous documentation for 1 hour. Obviously, he was sent home on Lasix 80 mg every other day. He had a pleural effusion on the left side. [facility] nurse called me at 12:00. They were unable to do physical therapy. He was falling and dizzy and blood pressure was 70/60. He has been on Coreg and lisinopril. He was advised to come to my office today this afternoon. He was brought in by the in a wheelchair. He was extremely dry. Sodium 137. Potassium is normal. Creatinine has gone up to 3.6 as well as BUN 60. The patient was adamant to go back to the hospital. Finally convinced to stay in the hospital at [facility]. Follow-up chest x-ray showed improvement in the pleural effusion. Bladder scan revealed 120 mL of urine. He has been voiding. He is also nauseous. He was started on gentle hydration 50 mL/h, and continue to monitor electrolytes. I spoke to Dr. Moran. Chest x-ray showed marked improvement of pleural effusion. We also started him on low doses of dopamine without any titration. As a result, rehospitalization was warranted. PAST MEDICAL HISTORY: PAF, congestive heart failure due to systolic dysfunction due to ischemic cardiomyopathy, EF to 30 percent to 40 percent, diverticulosis, coronary artery disease, CABG with stents, hemorrhoids, hiatal hernia, kidney stones, PID, sick sinus syndrome status post pacemaker, and prostate cancer status post radiation. PAST SURGICAL HISTORY: Right thoracotomy scar in 1979, prior stent placement in 2018, permanent pacemaker, bypass surgery, right carotid endarterectomy, and recent gallstone pancreatitis status post cholecystectomy. MEDICATIONS: Lisinopril 10 mg daily, Cordarone 200 daily, Coreg 3.125 p.o. b.i.d., Lasix 80 mg every other day, Levaquin 750 daily, Eliquis 2.5 p.o. b.i.d., Protonix 40 daily, and Ultracet 1 tab q. b.i.d. as needed. ALLERGIES: Reported to statins. SOCIAL HISTORY: He has been to second for 25 years. Retired from . Lives in [place]. Prior smoking. No alcohol. No drug abuse. FAMILY HISTORY: Father of heart disease at 74. Mom of stroke at 55. Brother had dementia. HEALTH MAINTENANCE: Flu vaccine 2018, pneumococcal-13 2017. Last physical June 2018. He also had a positive cologuard test. Subsequently, Dr. Benito did EGD and colonoscopy that showed hiatal hernia, gastritis, diverticular disease, benign polyps, and internal hemorrhoids in January 2019. REVIEW OF SYSTEMS: HEENT: Slight dizziness. No vision problem. No earache. No sore throat. Neck: No neck pain. No goiter or lymphadenopathy. Cardiopulmonary: No chest pain, shortness of breath, PND, or orthopnea. Gastrointestinal: Recently had a laparoscopic cholecystectomy by Dr. Gramajo. Genitourinary: Trouble of urination. Extremities: No swelling of legs. Neurologic: Dizzy upon standing. No focal symptoms. PHYSICAL EXAMINATION: VITAL SIGNS: Temperature is 97 degrees, pulse 62, blood pressure in my office 70/50. He is on 2 L nasal cannula. Height 5 feet 8 and 151 pounds. HEENT: Atraumatic, normocephalic. Pupils equal and reacting to light. Slightly anemic and dry. NECK: Supple. Scar from the right carotid surgery. JVD is not elevated. CHEST: Bilateral air entry. HEART: Sounds are regular. ABDOMEN: Belly is soft and nontender. Good bowel sounds. EXTREMITIES: No peripheral edema or cyanosis. NEUROLOGIC: No obvious neurological deficits. INVESTIGATIONS: CBC in my office is normal. SMA-7: Sodium 127, BUN 60, creatinine 3.6. Chest x-ray: Improvement of pleural effusion on the left side. ASSESSMENT AND PLAN: An 79-year-old white gentleman admitted to the hospital recently for laparoscopic cholecystectomy for gallstone pancreatitis who presented with hypotension and azotemia due to overdiuresis in the context of lisinopril and Coreg. PLAN: 1. Gentle hydration 50 mL/h and EF is 30 percent. 2. Hold the present medications. 3. Zofran for nausea. 4. Dopamine for renal doses to maintain the systolic blood pressure of 100. 5. Continue on amiodarone and Prilosec. 6. Heart healthy diet. 7. We will start on Eliquis 2.5 p.o. b.i.d. 8. Continue monitoring CBC and SMA-7. 9. Dr. Moran is going to follow over the weekend. cc: Robel Tariq MD MTDBuddy
[2019-10-01] MEDS: ELIQUIS PO SCH (20:12)
[2019-10-02 05:38] LABS: BASO# 0.01 X1000 (0.0-0.2); BASO% 0.1 % (0.0-0.8); EOS# 0.02 X1000 (0.0-0.7); EOS% 0.2 % (0.0-10.0); HEMATOCRIT 38.8 % (42.0-52.0); HEMOGLOBIN 13.2 g/dL (14.0-18.0); IMM GRAN# 0.15 X1000 (0.0-0.04); IMM GRAN% 1.8 % (0.0-0.5); LYMPH# 1.41 X1000 (1.2-3.4); LYMPH% 16.8 % (20.5-51.1); MCH 31.7 PG (27-31); MCV 93.3 FL (81-99); MONO# 1.07 X1000 (0.11-0.59); MONO% 12.8 % (1.7-9.3); MPV 9.5 FL (7.4-10.4); NEUT# 5.73 X1000 (1.4-6.5); NEUT% 68.3 % (42.2-75.2); PLT 357 X1000 (130-400); RBC 4.16 XMIL (4.7-6.1); RDW 13.5 % (11.5-14.5); WBC 8.39 X1000 (4.8-10.8)
[2019-10-02 06:03] LABS: CALCIUM 8.8 mg/dL (8.8-10.2); POTASSIUM 3.8 mmol/L (3.5-5.1)
[2019-10-02] MEDS: PRILOSEC PO SCH (06:17)
[2019-10-02] MEDS: ELIQUIS PO SCH ×2 (09:02→20:00)
[2019-10-02] MEDS: CORDARONE PO SCH ×2 (09:03→13:57)
[2019-10-02] MEDS: ZOFRAN IV PRN ×2 (09:41→21:55)
--- NOTE | 2019-10-02 13:10 | PROGRESS NOTE ---
DATE: 10/02/2019 ADDENDUM: His repeat chest x-ray had shown there was a small pleural effusion which is decreased in size on the left side. He has mild COPD changes. Basilar airspace disease is present also. We will continue with the current management. Continue the IV fluids throughout the day. cc: MD Robel Quinonez MD
--- NOTE | 2019-10-02 13:21 | PROGRESS NOTE ---
DATE: 10/02/2019 Mr. Benavides had significant dehydration. He has been vomiting. He vomited today after his meals, was given Zofran. We will continue the IV fluids. His vital signs are stable except his blood pressure was 129/46. Last night we turned dopamine off. Pulse is 67. Electrolytes revealed mild hyponatremia, sodium 128, potassium 3.8. CBC unremarkable. BUN 61, creatinine 30, blood sugar was 123. Overall condition is otherwise unchanged. -6 cc: MD Robel Quinonez MD
[2019-10-02] MEDS: NS 1,000 ML IV SCH (13:58)
[2019-10-02] MEDS: DOPAMINE 400 MG/D5W 400 MG/500 ML IV.SOLN IV SCH (22:27)
[2019-10-03] MEDS: NS 1,000 ML IV SCH (02:18)
[2019-10-03] MEDS: ZOFRAN IV PRN (05:10)
[2019-10-03] MEDS: PRILOSEC PO SCH (05:39)
[2019-10-03 05:54] LABS: BASO# 0.02 X1000 (0.0-0.2); BASO% 0.3 % (0.0-0.8); EOS# 0.03 X1000 (0.0-0.7); EOS% 0.4 % (0.0-10.0); HEMATOCRIT 39.2 % (42.0-52.0); IMM GRAN# 0.08 X1000 (0.0-0.04); LYMPH% 12.9 % (20.5-51.1); MCH 31.6 PG (27-31); MCHC 33.2 g/dL (33-37); MCV 95.1 FL (81-99); MONO# 1.22 X1000 (0.11-0.59); MONO% 15.7 % (1.7-9.3); MPV 9.4 FL (7.4-10.4); NEUT# 5.43 X1000 (1.4-6.5); NEUT% 69.7 % (42.2-75.2); PLT 322 X1000 (130-400); RBC 4.12 XMIL (4.7-6.1); RDW 13.4 % (11.5-14.5); WBC 7.78 X1000 (4.8-10.8)
[2019-10-03 06:22] LABS: CALCIUM 8.1 mg/dL (8.8-10.2); CREATININE 1.8 mg/dL (0.7-1.2); POTASSIUM 3.4 mmol/L (3.5-5.1)
[2019-10-03] MEDS: ELIQUIS PO SCH ×2 (08:23→20:00)
[2019-10-03] MEDS: CORDARONE PO SCH (08:23)
--- NOTE | 2019-10-03 12:54 | PROGRESS NOTE ---
DATE: 10/03/2019 Mr. Benavides said he had vomiting this afternoon, after lunch. However, he kept his breakfast down. He is trying to drink some Ensure every day. He has a history of gallstone pancreatitis and had laparoscopic cholecystectomy. Sodium is 129, potassium 3.4, chloride 90, CO2 is 30. CBC within normal limits. Blood pressure 131/58. Overall condition is slightly better. We will continue with the current management on him. -0 cc: MD Robel Quinonez MD
[2019-10-03] MEDS: D5 1/2 NS + KCL 20 MEQ 1,000 ML IV SCH (15:07)
[2019-10-04] MEDS: D5 1/2 NS + KCL 20 MEQ 1,000 ML IV SCH (02:53)
[2019-10-04] MEDS: PRILOSEC PO SCH ×2 (05:34→06:01)
[2019-10-04 05:59] LABS: BASO# 0.03 X1000 (0.0-0.2); BASO% 0.5 % (0.0-0.8); EOS# 0.08 X1000 (0.0-0.7); EOS% 1.3 % (0.0-10.0); HEMATOCRIT 34.4 % (42.0-52.0); HEMOGLOBIN 11.1 g/dL (14.0-18.0); IMM GRAN# 0.04 X1000 (0.0-0.04); IMM GRAN% 0.6 % (0.0-0.5); LYMPH# 1.04 X1000 (1.2-3.4); LYMPH% 16.5 % (20.5-51.1); MCH 31.4 PG (27-31); MCHC 32.3 g/dL (33-37); MCV 97.2 FL (81-99); MONO# 0.96 X1000 (0.11-0.59); MONO% 15.3 % (1.7-9.3); MPV 9.4 FL (7.4-10.4); NEUT# 4.14 X1000 (1.4-6.5); NEUT% 65.8 % (42.2-75.2); PLT 244 X1000 (130-400); RBC 3.54 XMIL (4.7-6.1); RDW 13.7 % (11.5-14.5); WBC 6.29 X1000 (4.8-10.8)
[2019-10-04 06:35] LABS: CALCIUM 8.2 mg/dL (8.8-10.2); CREATININE 1.4 mg/dL (0.7-1.2)
[2019-10-04 08:14] VITALS: BP 113/48
[2019-10-04] MEDS: ELIQUIS PO SCH (08:19)
[2019-10-04] MEDS: CORDARONE PO SCH (08:19)
--- NOTE | 2019-10-05 10:44 | DISCHARGE SUMMARY ---
ADMISSION DATE: 10/01/2019 DISCHARGE DATE: 10/04/2019 DISCHARGING DIAGNOSES: 1. Dizziness due to hypotension. 2. Acute kidney injury with chronic renal insufficiency due to hypotension. OTHER DIAGNOSES: 1. Paroxysmal atrial fibrillation. 2. Chronic ischemic systolic heart failure due to ischemic cardiomyopathy, ejection fraction 30% to 40%. 3. Diverticulosis. 4. Coronary artery disease, status post bypass, stents. 5. Hiatal hernia. 6. Hemorrhoids. 7. Kidney stones. 8. Peripheral arterial disease. 9. Sick sinus syndrome, status post pacemaker. 10. History of prostate cancer, status post radiation. 11. Gallstone pancreatitis recently, status post cholecystectomy. BRIEF HISTORY: Please see the H and P that was done on 10/01/2019. In brief, this 79-year-old, white male was recently discharged from the Hospitalist Service after he had a prolonged course of gallstone pancreatitis complicated by CHF with left pleural effusion. The patient was sent home on Lasix. He was over diuresed, blood pressure was low, and he is feeling dizzy upon standing. Blood pressure was 70/60. Baseline creatinine 1.7 at the time of discharge. The patient had BUN 60 and creatinine 3.2. He was admitted to the hospital in PVC. I stopped all the Coreg and lisinopril and Lasix. He was given IV fluids 50 mL/h. He was given a standby low dose of dopamine without any titration. Chest x-ray showed complete resolution of pleural effusion on the left side. After hydration, his renal function tests came back normal. He is no longer orthostatic. LABORATORY DATA: CBC: White cell count 6.2, hematocrit 34, platelets 244,000. Sodium 136, potassium 4.0, chloride 97, BUN 26, creatinine 1.4, calcium 8.2. DISPOSITION/INSTRUCTIONS: The patient was discharged home in a stable condition with the following instructions. Hold the lisinopril. Nitroglycerin as needed. Cordarone 200 daily. Coreg 3.125 p.o. b.i.d. Hold the Lasix. Eliquis 2.5 p.o. b.i.d. Protonix 40 mg daily. Ultracet p.r.n. pain. Follow up in my office in 10 days. cc: MD Aurora Kilgore MD Luis N. Villanueva, MD
== END 2019-10-04 10:00 | disposition home health service (06) | DRG 683 ==
LOC: DIRADM 15:07 → 2N 15:38
PROVIDERS: ADMIT Internal Medicine; ATTEND Internal Medicine